=== PATIENT | female | born 1960 | race Caucasian/White ===

== ENCOUNTER → 2017-03-09 | Outpatient (CLI) | payer OTHER ==
[2017-03-09 13:49] LABS: ALT/SGPT 31 U/L (12-78); AST/SGOT 20 U/L (15-37); BLOOD UREA NITROGEN 13 mg/dl (7-18); BUN/CREATININE RATIO 21.6 (10-20); CALCIUM 8.4 mg/dl (8.5-10.1); CARBON DIOXIDE 27 mmol/L (21-32); CHLORIDE 109 mmol/L (98-107); CREATININE 0.61 mg/dl (0.60-1.20); GLUCOSE 116 mg/dl (70-99); POTASSIUM 3.9 mmol/L (3.5-5.1); SODIUM 141 mmol/L (136-145)
[2017-03-09 13:57] LABS: ALB/GLOB RATIO 0.7 (0.9-2); ALKALINE PHOSPHATASE 95 U/L (45-117); CHOLESTEROL 163 mg/dl (0-200); CHOLESTEROL/HDL RATIO 3.8; HDL CHOLESTEROL 43 mg/dl; LDL CHOLESTEROL CALCULATED 73 mg/dl; THYROID STIMULATING HORMONE 0.772 uIu/ml (0.300-4.500); TRIGLYCERIDES 235 mg/dl (0-150); VERY LOW DENSITY LIPOPROT CALC 47 mg/dl
[2017-03-09 14:03] LABS: ESTIMATED AVERAGE GLUCOSE 154 mg/dl; HA1C FLAG Normal (Normal)
[2017-03-14 19:33] LABS: GLUTAMIC ACID DECARBOXYLASE-65 <5 IU/mL (<5)
== END | disposition home or self-care (01) ==
LOC: C.LAB1850 12:00
PROVIDERS: ATTEND Internal Medicine Endocrinology, Diabetes & Metabolism
DX: E11.9 Type 2 diabetes mellitus without complications (principal)

== ENCOUNTER → 2017-05-26 | Day surgery (SDC) | payer OTHER ==
[2017-05-17 11:10] VITALS: Ht 160 cm; Wt 113.6 kg
[~2017-05-26] VITALS: Ht 160 cm; Wt 113.6 kg
[~2017-05-26] MED LIST: ATROPINE SULFATE 0.1 MG/ML 5ML SYR IV PRN; B-COTAB18 PO; CHOL1TAB46 PO; DVN80 PO; EpHEDrine SULFATE INJ 50 MG/ML AMP IV PRN; GLC/500 PO; GLIP-197 PO; INDSR/120 PO; LEVO100T7 PO; LIDOCAINE HCL 2% 2 ML VIAL (20MG/ML) ONE; MIDAZOLAM HCL 1 MG/ML 2ML VIAL ONE; MULT-506 PO; PANC6000 PO; PROPOFOL IV EMULSION 10 MG/ML 20 ML VIAL IV ONE; RMCI IV; TRAM-10 PO; TRAZ50TA35 PO; VENL150C56 PO
--- NOTE | 2017-05-26 10:25 | Endo History and Physical ---
History & Physical Date of Service: May 26, 2017. Chief Complaint: Ulerative Colitis Referring Physician: Dr. Roosevelt San History of Present Illness 57 yo CF who presents for colonoscopy secondary to ulcerative colitis. Past Surgical History Hx Cardiac Surgery: No Hx Internal Defibrillator: No Hx Pacemaker: No Hx Abdominal Surgery: Yes (ALLEGRA) Hx of Implantable Prosthesis: No Hx Post-Op Nausea and Vomiting: No Hx Cancer Surgery: No Hx Thoracic Surgery: No Hx Orthopedic: Yes (L5-S1 LUMBAR LASER SURGERY) Hx Urinary Tract Surgery: No Family History Colon CA, Esophogeal CA, Polyp, IBD Social History Smoking Status: Former Smoker Hx Substance Use: No Hx Alcohol Use: No Allergies Coded Allergies: NO KNOWN DRUG ALLERGIES (Verified Allergy, Unknown, ., 05/17/17) Current Medications Reported Home Medications Medications Dose Route/Sig Max Daily Dose Days Date Category Dose Instructions Vitamin B Complex (B-Complex Vitamins) 1 Tab Tab 1 Tab PO QPM 05/17/17 Reported Vitamin D3 (Cholecalciferol) 5,000 Unit Tab 1 Tab PO QPM 05/17/17 Reported Effexor Extended Rel (Venlafaxine Hcl) 150 Mg Cap 150 Mg PO QAM 05/17/17 Reported Diovan (Valsartan) 80 Mg Tab 80 Mg PO QAM 05/17/17 Reported Trazodone (Trazodone HCl) 50 Mg Tab 50 Mg PO HS 05/17/17 Reported Ultram (Tramadol HCl) 50 Mg Tab 1 Tab PO DAILY PRN 05/17/17 Reported Remicade (Infliximab) 100 Mg/10 Ml Inj 1 Dose IV Q8WKS 05/17/17 Reported Inderal La (Propranolol HCl) 120 Mg Capcr 120 Mg PO QPM 05/17/17 Reported Multivitamin (Multivitamins) Tab 1 Tab PO QAM 05/17/17 Reported Glucophage (Metformin Hcl) 500 Mg Tab 2 Tab PO BID 05/17/17 Reported Levothyroxine Sodium 100 Mcg Tab 1 Tab PO QAM 05/17/17 Reported Glipizide Er (Glipizide) 5 Mg Tab 1 Tab PO QPM 05/17/17 Reported Creon (Pancrelipase (Lipase-Protease-) 1 Cap Cap 2 Cap PO WITH MEALS 05/17/17 Reported IN ADDITION TO 1 TABS WITH SNACK Vital Signs Weight (Kilograms): 113.64 Height (Feet): 5 Height (Inches): 3 Date Time Temp Pulse Resp B/P (MAP) Pulse Ox O2 Delivery O2 Flow Rate FiO2 05/26/17 10:13 36.5 97 95 153/88 (109) 95 Room Air Physical Exam General Appearance: WD/WN, no apparent distress Respiratory/Chest: Auscultation: breath sounds normal Cardiovascular: Heart Auscultation: RRR Abdomen: Bowel Sounds: normal Inspection & Palpation: soft, non-distended, no tenderness, guarding & rebound Assessment and Plan Assessment: 57 yo CF who presents for colonoscopy secondary to ulcerative colitis. Plan: Proceed with colonoscopy.
--- NOTE | 2017-05-26 10:59 | Discharge Instructions ---
Endoscopy Patient Instructions Date / Procedure(s) Performed May 26, 2017. Colonoscopy Allergy Information Coded Allergies: NO KNOWN DRUG ALLERGIES (Verified Allergy, Unknown, ., 05/17/17) Discharge Date / Findings May 26, 2017. Colon polyps Ulcerative proctitis Random colon biopsies Diverticulosis Internal hemorrhoids Medication Instructions Stopped Medication(s): last Metformin Monday OK to resume all medications today as prescribed Reported Home Medications Medications Dose Route/Sig Max Daily Dose Days Date Category Dose Instructions Vitamin B Complex (B-Complex Vitamins) 1 Tab Tab 1 Tab PO QPM 05/17/17 Reported Vitamin D3 (Cholecalciferol) 5,000 Unit Tab 1 Tab PO QPM 05/17/17 Reported Effexor Extended Rel (Venlafaxine Hcl) 150 Mg Cap 150 Mg PO QAM 05/17/17 Reported Diovan (Valsartan) 80 Mg Tab 80 Mg PO QAM 05/17/17 Reported Trazodone (Trazodone HCl) 50 Mg Tab 50 Mg PO HS 05/17/17 Reported Ultram (Tramadol HCl) 50 Mg Tab 1 Tab PO DAILY PRN 05/17/17 Reported Remicade (Infliximab) 100 Mg/10 Ml Inj 1 Dose IV Q8WKS 05/17/17 Reported Inderal La (Propranolol HCl) 120 Mg Capcr 120 Mg PO QPM 05/17/17 Reported Multivitamin (Multivitamins) Tab 1 Tab PO QAM 05/17/17 Reported Glucophage (Metformin Hcl) 500 Mg Tab 2 Tab PO BID 05/17/17 Reported Levothyroxine Sodium 100 Mcg Tab 1 Tab PO QAM 05/17/17 Reported Glipizide Er (Glipizide) 5 Mg Tab 1 Tab PO QPM 05/17/17 Reported Creon (Pancrelipase (Lipase-Protease-) 1 Cap Cap 2 Cap PO WITH MEALS 05/17/17 Reported IN ADDITION TO 1 TABS WITH SNACK Provider Instructions Activity Restrictions - No exercising or heavy lifting for 24 hours. - Do not drink alcohol the day of the procedure. - Do not drive a car or operate machinery until the day after the procedure. - Do not make any important decisions or sign important papers in 24 hours after the procedure. Following Day: - Return to full activity which may include returning to work/school. Diet Start your diet with liquids and light foods (jello, soup, juice, toast). Then eat your usual diet if not nauseated. Treatment For Common After Affects For mild abdominal pain, bloating, or excessive gas: - Rest - Eat lightly - Lie on right side Follow-Up Information Follow-up with Dr. Roosevelt San as scheduled Anesthesia Information What You Should Know You have had a procedure that required some medicine to reduce anxiety and discomfort. This treatment is called moderate sedation. After receiving the treatment, you may be sleepy, but you will be able to breathe on your own. The effects of the treatment may last for several hours. Follow these instructions along with Activity/Diet recommendations noted above: * Do NOT do anything where dizziness or clumsiness would be dangerous. * Rest quietly at home today, then you can be up and about tomorrow. * Have a responsible person stay with you the rest of today. * You may have had an I.V. today. If so, you may take the dressing off later today. Recommendations Call your doctor if: * Trouble breathing * Continuous vomiting for more than 24 hours * Temperature above 101 degrees * Severe abdominal pain or bloating * Pain not relieved by pain medicine ordered * There is increased drainage or redness from any incision * A large amount of rectal bleeding greater than 2-3 tablespoons. (If you had a polyp/s removed or have hemorrhoids, a small amount of blood - from the rectum is to be expected.) * You have any unanswered questions or concerns. IN THE EVENT OF A SERIOUS EMERGENCY, GO TO THE NEAREST EMERGENCY ROOM Your discharge instructions were prepared by provider Jacky Tuttle. Patient Instructions Signature Page Emani Boyer Patient (or Guardian) Signature/Date: I have read and understand the instructions given to me by my caregivers. Caregiver/RN/Doctor Signature/Date: The above-named patient and/or guardian has received patient instructions on this date. + Original Patient Signature Page (only) stays with chart. Please make copy for patient.
--- NOTE | 2017-05-26 11:14 | Anesthesiology Progress Note ---
Anesthesia Post Op Note Date & Time May 26, 2017 at 11:14 Vital Signs Pain Intensity: 0 Vital Signs Past 12 Hours Date Time Temp Pulse Resp B/P (MAP) Pulse Ox O2 Delivery O2 Flow Rate FiO2 05/26/17 11:05 77 20 94/49 (64) 94 Room Air 05/26/17 10:13 36.5 97 95 153/88 (109) 95 Room Air Notes Mental Status: alert / awake / arousable, participated in evaluation Pt Amnestic to Procedure: Yes Nausea / Vomiting: adequately controlled Pain: adequately controlled Airway Patency, RR, SpO2: stable & adequate BP & HR: stable & adequate Hydration State: stable & adequate Anesthetic Complications: no major complications apparent
[2017-05-26 11:35] VITALS: BP 127/54; PULSE 83; O2SAT 96
--- NOTE | 2017-05-26 14:00 | GI REPORT ---
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 Estimated Blood Loss: Estimated blood loss: none. Procedure: Pre-Anesthesia Assessment: - Prior to the procedure, a History and Physical was performed, and patient medications and allergies were reviewed. The patient's tolerance of previous anesthesia was also reviewed. The risks and benefits of the procedure and the sedation options and risks were discussed with the patient. All questions were answered, and informed consent was obtained. Prior Anticoagulants: The patient has taken no previous anticoagulant or antiplatelet agents. ASA Grade Assessment: II - A patient with mild systemic disease. After reviewing the risks and benefits, the patient was deemed in satisfactory condition to undergo the procedure. After I obtained informed consent, the scope was passed under direct vision. Throughout the procedure, the patient's blood pressure, pulse, and oxygen saturations were monitored continuously. The scope was introduced through the anus and advanced to the cecum, identified by appendiceal orifice and ileocecal valve. The colonoscopy was performed without difficulty. The patient tolerated the procedure well. The quality of the bowel preparation was good. The ileocecal valve, appendiceal orifice, and rectum were photographed. Findings: Two sessile polyps were found in the transverse colon. The polyps were 4 to 6 mm in size. These polyps were removed with a hot snare. Resection and retrieval were complete. Multiple small-mouthed diverticula were found in the sigmoid colon. Inflammation characterized by erosions, erythema and friability was found in a continuous and circumferential pattern from the anus to the rectum. This was mild in severity. Non-bleeding internal hemorrhoids were found during retroflexion. The hemorrhoids were small. Several random biopsies were obtained with cold forceps for histology in the entire colon. Impression: - Two 4 to 6 mm polyps in the transverse colon, removed with a hot snare. Resected and retrieved. - Diverticulosis in the sigmoid colon. - Inflammation was found from the anus to the rectum secondary to proctitis ulcerative colitis. - Non-bleeding internal hemorrhoids. - Several random biopsies were obtained in the entire colon. Recommendation: - Resume previous diet. - Continue present medications. - Repeat colonoscopy for surveillance based on pathology results. - Return to primary care physician as previously scheduled. Jacky Tuttle DO 05/26/2017 11:08:06 AM This report has been signed electronically. Note Initiated On: 05/26/2017 10:33 AM I attest to the content of the Intraoperative Record and orders documented therein, exceptions below
== END | disposition home or self-care (01) ==
LOC: C.GI 09:53
PROVIDERS: ATTEND Internal Medicine
DX: K51.20 Ulcerative (chronic) proctitis without complications (principal); D12.3 Benign neoplasm of transverse colon; K57.30 Diverticulosis of large intestine without perforation or abscess without bleeding; K64.8 Other hemorrhoids; Z80.0 Family history of malignant neoplasm of digestive organs; Z83.71 Family history of colonic polyps; Z83.79 Family history of other diseases of the digestive system; Z87.891 Personal history of nicotine dependence; Z79.899 Other long term (current) drug therapy

== ENCOUNTER → 2017-06-12 | Outpatient (CLI) | payer OTHER ==
[~2017-06-12] MED LIST changes: -ATROPINE SULFATE 0.1 MG/ML 5ML SYR IV PRN; -EpHEDrine SULFATE INJ 50 MG/ML AMP IV PRN; -LIDOCAINE HCL 2% 2 ML VIAL (20MG/ML) ONE; -MIDAZOLAM HCL 1 MG/ML 2ML VIAL ONE; -PROPOFOL IV EMULSION 10 MG/ML 20 ML VIAL IV ONE
[2017-06-12 15:22] LABS: RATIO 9.2 mcg/mg (0-30.0)
[2017-06-13 07:21] LABS: ESTIMATED AVERAGE GLUCOSE 143 mg/dl; HA1C FLAG Normal (Normal)
== END | disposition home or self-care (01) ==
LOC: C.LAB1850 12:38
PROVIDERS: ATTEND Internal Medicine Endocrinology, Diabetes & Metabolism
DX: E11.9 Type 2 diabetes mellitus without complications (principal)

== ENCOUNTER → 2017-10-06 | Outpatient (CLI) | payer OTHER ==
[~2017-10-06] MED LIST changes: +ACET-1256 PO; +CALC-354 PO; +CEPH500C PO; +METH2.5T PO; +MULT-663 PO; +ONDA4TAB10 SL; +OXYC1TAB3 PO
[2017-10-06 11:07] LABS: BASO % 0.7 %; BASO ABS # 0.06 K/uL (0-0.2); EOS % 3.2 %; EOS ABS # 0.27 K/uL (0-0.5); HEMOGLOBIN 15.1 g/dL (12.0-16.0); IG# 0.03 K/uL (0.00-0.02); LYMPH % 35.7 %; LYMPH ABS # 2.99 K/uL (1.2-3.4); MEAN CORPUSCULAR HEMOGLOBIN 31.2 pg (25-34); MEAN CORPUSCULAR HGB CONC 32.8 g/dl (32-36); MEAN PLATELET VOLUME 9.6 fL (7.4-10.4); MONO % 12.7 %; MONO ABS # 1.06 K/uL (0.11-0.59); NEUT % 47.3 %; NEUT ABS # 3.96 K/uL (1.4-6.5); PLATELET COUNT 295 K/uL (130-400); RED CELL DISTRIBUTION WIDTH CV 18.2 % (11.5-14.5); RED CELL DISTRIBUTION WIDTH SD 62.9 fL (36.4-46.3); WHITE BLOOD COUNT 8.37 K/uL (4.8-10.8)
[2017-10-06 11:41] LABS: ALBUMIN 3.4 gm/dl (3.4-5.0); ALT/SGPT 57 U/L (12-78); AST/SGOT 32 U/L (15-37); BLOOD UREA NITROGEN 10 mg/dl (7-18); CALCIUM 8.6 mg/dl (8.5-10.1); CARBON DIOXIDE 26 mmol/L (21-32); CREATININE 0.69 mg/dl (0.60-1.20); GLUCOSE 224 mg/dl (70-99); POTASSIUM 3.9 mmol/L (3.5-5.1); SODIUM 139 mmol/L (136-145)
[2017-10-06 11:43] LABS: ALKALINE PHOSPHATASE 95 U/L (45-117); TOTAL PROTEIN 7.5 gm/dl (6.4-8.2)
== END | disposition home or self-care (01) ==
LOC: C.LAB 09:57
PROVIDERS: ATTEND Physician Assistant
DX: K51.90 Ulcerative colitis, unspecified, without complications (principal)

== ENCOUNTER 2017-10-12 08:55 | Emergency (ER) | payer OTHER ==
[~2017-10-12] VITALS: Ht 160 cm; Wt 118.5 kg
[~2017-10-12 08:55] MED LIST changes: -ACET-1256 PO; -CALC-354 PO; -CEPH500C PO; -METH2.5T PO; -MULT-663 PO; -ONDA4TAB10 SL; -OXYC1TAB3 PO
[2017-10-12 08:57] VITALS: TEMP 36.4; Ht 160 cm; Wt 118.5 kg
[2017-10-12] MEDS ORDERED: HYDROmorphone INJ 1 MG/ML SYR IV STA (09:06)
[2017-10-12] MEDS ORDERED: SODIUM CHLORIDE 0.9% 1000ML 1,000 ML IV STA (09:06)
[2017-10-12] MEDS ORDERED: KETOROLAC TROMETHAMINE 30 MG/ML VIAL IV STA (09:06)
[2017-10-12] MEDS ORDERED: METOCLOPRAMIDE HCL INJ 5 MG/ML 2 ML VIAL IV. STA (09:06)
[2017-10-12] MEDS ORDERED: OPTIRAY 320 IV PRN (09:15)
[2017-10-12 09:36] LABS: BASO % 0.2 %; BASO ABS # 0.03 K/uL (0-0.2); EOS % 0.7 %; EOS ABS # 0.11 K/uL (0-0.5); HEMATOCRIT 49.3 % (37-47); HEMOGLOBIN 16.3 g/dL (12.0-16.0); IG# 0.07 K/uL (0.00-0.02); LYMPH % 9.6 %; LYMPH ABS # 1.46 K/uL (1.2-3.4); MEAN CELL VOLUME 95.2 fL (80-100); MEAN CORPUSCULAR HEMOGLOBIN 31.5 pg (25-34); MEAN CORPUSCULAR HGB CONC 33.1 g/dl (32-36); MEAN PLATELET VOLUME 9.6 fL (7.4-10.4); MONO % 9.7 %; MONO ABS # 1.48 K/uL (0.11-0.59); NEUT % 79.3 %; NEUT ABS # 12.13 K/uL (1.4-6.5); PLATELET COUNT 302 K/uL (130-400); RED CELL DISTRIBUTION WIDTH CV 17.4 % (11.5-14.5); WHITE BLOOD COUNT 15.28 K/uL (4.8-10.8)
[2017-10-12 09:40] VITALS: O2SAT 94
--- NOTE | 2017-10-12 09:45 | DIAGNOSTIC IMAGING REPORT ---
CHEST ONE VIEW PORTABLE CLINICAL HISTORY: Atypical chest pain COMPARISON STUDY: No previous studies for comparison. FINDINGS: The cardiac and mediastinal contours are normal. There is no evidence of focal pulmonary consolidation. There is no evidence of failure. No pleural effusions are visualized.[ There is a mild spinal curvature. There is suspected calcific tendinitis involving the left shoulder. IMPRESSION: No active disease in the chest. Electronically signed by: Marc Tipton M.D. 10/12/2017 9:43 AM Dictated Date/Time: 10/12/2017 9:43 AM
[2017-10-12] MEDS ORDERED: CALC-354 PO (09:51)
[2017-10-12] MEDS ORDERED: ACET-1256 PO (09:51)
[2017-10-12] MEDS ORDERED: MULT-663 PO (09:53)
[2017-10-12 09:57] LABS: ALBUMIN 3.5 gm/dl (3.4-5.0); ALKALINE PHOSPHATASE 113 U/L (45-117); ALT/SGPT 64 U/L (12-78); AST/SGOT 38 U/L (15-37); BLOOD UREA NITROGEN 12 mg/dl (7-18); CALCIUM 8.8 mg/dl (8.5-10.1); CARBON DIOXIDE 21 mmol/L (21-32); GLUCOSE 129 mg/dl (70-99); LIPASE 309 U/L (73-393); POTASSIUM 4.1 mmol/L (3.5-5.1); SODIUM 140 mmol/L (136-145); TOTAL PROTEIN 7.6 gm/dl (6.4-8.2)
[2017-10-12 09:59] LABS: CKMB < 0.5 ng/ml (0.5-3.6)
[2017-10-12] MEDS ORDERED: METH2.5T PO (10:03)
[2017-10-12] MEDS ORDERED: ONDANSETRON INJ 2 MG/ML 2 ML VIAL IV STA (11:20)
--- NOTE | 2017-10-12 12:18 | DIAGNOSTIC IMAGING REPORT ---
CT ABD/PELVIS IV AND ORAL CONT CLINICAL HISTORY: Epigastric pain. Pancreatitis. COMPARISON STUDY: None. TECHNIQUE: Following the IV administration of 120 mL of Optiray-320, CT scan of the abdomen and pelvis was performed from the lung bases to the proximal femurs. Images are reviewed in the axial, sagittal, and coronal planes. IV contrast was administered without complication. A dose lowering technique was utilized adhering to the principles of ALARA. CT DOSE: 1677.69 mGy.cm FINDINGS: Lower chest: The heart is normal in size and configuration, without pericardial effusion. The lung bases and pleural spaces are clear. Liver: There is mild hepatic steatosis. No focal masses are visualized. Gallbladder: Surgically absent Spleen: Normal in size and attenuation. Pancreas: Unremarkable. Adrenal glands: There is bilateral adrenal gland thickening left greater than right, likely secondary to adenomatous hyperplasia Kidneys: There is a 7 mm left renal cyst. There is no hydronephrosis. Bowel: There are no transition zones indicate bowel obstruction. There is colonic diverticulosis. There are no acute peridiverticular inflammatory changes. The appendix is felt to be normal. Peritoneum: There is no intraperitoneal free air or abdominal ascites. There is a fat-containing umbilical hernia Vasculature: The abdominal aorta is normal in course and caliber. Adenopathy: There is a borderline enlarged aortocaval lymph node. Pelvic viscera: The bladder, and pelvic viscera are unremarkable. Skeletal structures: No destructive osseous lesions are seen. IMPRESSION: 1. No evidence of bowel obstruction. No evidence of free air 2. Diverticulosis. No evidence of acute diverticulitis 3. Normal appendix 4. No CT evidence of acute pancreatitis 5. Nonspecific borderline enlarged aortocaval lymph nodes possibly reactive 6. Fat-containing umbilical hernia Electronically signed by: Marc Tipton M.D. 10/12/2017 12:17 PM Dictated Date/Time: 10/12/2017 12:12 PM
[2017-10-12] MEDS ORDERED: CEFTRIAXONE SOD INJ 1 GM ADDVIAL IV STA (12:33)
[2017-10-12] MEDS ORDERED: CEPH500C PO (12:44)
[2017-10-12] MEDS ORDERED: ONDA4TAB10 SL (12:44)
[2017-10-12] MEDS ORDERED: OXYC1TAB3 PO (12:44)
[2017-10-12 12:51] VITALS: BP 113/66; PULSE 86; O2SAT 95
--- NOTE | 2017-10-12 12:51 | EMERGENCY ROOM VISIT NOTE ---
History Report prepared by Kiersten: Abhi Ruiz Under the Supervision of: Dr. Zana Yap M.D. First contact with patient: 09:01 Chief Complaint: ABDOMINAL PAIN Stated Complaint: PANCREATITIS Nursing Triage Summary: triage note: pt reports "i think i am having a pancreatitis attack." pt reports abd pain since this am. pt reports nausea. pt reports hx of pancreatitis. History of Present Illness The patient is a 57 year old female who presents to the Emergency Room with complaints of constant upper abdominal pain beginning four hours ago. She has a history of chronic pancreatitis and pancreatic insufficiency (but has not had pain with pancreatitis previously). The patient rates her pain as a 5/10 in severity. She also complains of nausea. The patient denies recent alcohol consumption. Her most recent food was eight hours ago. The patient also has a history of ulcerative colitis. Source of History: patient Onset: 4 hours ago Position: abdomen (upper) Symptom Intensity: 5/10 Timing: constant Associated Symptoms: + nausea Review of Systems See HPI for pertinent positives & negatives. A total of 10 systems reviewed and were otherwise negative. Past Medical & Surgical Medical Problems: (1) Diabetes (2) HTN (hypertension) (3) Pancreatitis (4) Ulcerative colitis Family History No pertinent family history stated. Social History Smoking Status: Never Smoker Marital Status: Housing Status: lives with significant other Current/Historical Medications Scheduled Acetaminophen (Tylenol), 1,000 MG PO UD Calcium Carbonate-Cholecalcife (Caltrate 600+D), 1 TAB PO HS Cephalexin Monohydrate (Keflex), 1 CAP PO TID Glipizide (Glipizide Er), 1 TAB PO QPM Infliximab (Remicade), 1 DOSE IV Q6WKS Levothyroxine Sodium (Levothyroxine Sodium), 1 TAB PO QAM Metformin Hcl (Glucophage), 2 TAB PO BID Methotrexate (Methotrexate), 15 MG PO WK Multiple Minerals W/ Vitamins (Citracal Plus), 2 TABS PO HS Multivitamin (Multivitamin), 1 TAB PO QAM Ondasetron Odt (Zofran Odt), 4 MG SL Q6H Pancrelipase (Lipase-Protease- (Creon), 2 CAP PO WITH MEALS Propranolol La (Inderal La), 120 MG PO QPM Valsartan (Diovan), 80 MG PO QAM Venlafaxine Hcl (Effexor Extended Rel), 150 MG PO QAM Scheduled PRN Oxycodone Immediate Rel Tab (Roxicodone Ir), 1-2 TAB PO Q4H PRN for Severe Pain Allergies Coded Allergies: NO KNOWN DRUG ALLERGIES (Verified Allergy, Unknown, ., 10/12/17) Physical Exam Vital Signs Date Time Temp Pulse Resp B/P (MAP) Pulse Ox O2 Delivery O2 Flow Rate FiO2 10/12/17 12:51 86 20 113/66 95 Room Air 10/12/17 11:57 89 20 126/72 93 Room Air 10/12/17 10:09 79 20 116/65 94 Nasal Cannula 2.0 10/12/17 09:53 81 10/12/17 09:40 94 Nasal Cannula 2.0 10/12/17 09:37 93 Room Air 10/12/17 08:57 36.4 83 18 153/116 92 Room Air Physical Exam GENERAL: Awake, alert, well-appearing, in no acute distress HENT: Normocephalic, atraumatic. Oropharynx unremarkable. EYES: Normal conjunctiva. Sclera non-icteric. NECK: Supple. No nuchal rigidity. FROM. No JVD. RESPIRATORY: Clear to auscultation. CARDIAC: Regular rate, normal rhythm. Extremities warm and well perfused. Pulses equal. ABDOMEN: Soft, non-distended. No rebound or guarding. No masses. Mildly tender in the epigastric region. RECTAL: Deferred. MUSCULOSKELETAL: Chest examination reveals no tenderness. The back is symmetrical on inspection without obvious abnormality. There is no CVA tenderness to palpation. No joint edema. LOWER EXTREMITIES: Calves are equal size bilaterally and non-tender. No edema. No discoloration. NEURO: Normal sensorium. No sensory or motor deficits noted. SKIN: No rash or jaundice noted. Medical Decision & Procedures ER Provider Diagnostic Interpretation: Radiology results as stated below per my review and radiologist interpretation: CHEST ONE VIEW PORTABLE FINDINGS: The cardiac and mediastinal contours are normal. There is no evidence of focal pulmonary consolidation. There is no evidence of failure. No pleural effusions are visualized.[ There is a mild spinal curvature. There is suspected calcific tendinitis involving the left shoulder. IMPRESSION: No active disease in the chest. Electronically signed by: Marc Tipton M.D. 10/12/2017 9:[address] ABD/PELVIS IV AND ORAL CONT FINDINGS: Lower chest: The heart is normal in size and configuration, without pericardial effusion. The lung bases and pleural spaces are clear. Liver: There is mild hepatic steatosis. No focal masses are visualized. Gallbladder: Surgically absent Spleen: Normal in size and attenuation. Pancreas: Unremarkable. Adrenal glands: There is bilateral adrenal gland thickening left greater than right, likely secondary to adenomatous hyperplasia Kidneys: There is a 7 mm left renal cyst. There is no hydronephrosis. Bowel: There are no transition zones indicate bowel obstruction. There is colonic diverticulosis. There are no acute peridiverticular inflammatory changes. The appendix is felt to be normal. Peritoneum: There is no intraperitoneal free air or abdominal ascites. There is a fat-containing umbilical hernia Vasculature: The abdominal aorta is normal in course and caliber. Adenopathy: There is a borderline enlarged aortocaval lymph node. Pelvic viscera: The bladder, and pelvic viscera are unremarkable. Skeletal structures: No destructive osseous lesions are seen. IMPRESSION: 1. No evidence of bowel obstruction. No evidence of free air 2. Diverticulosis. No evidence of acute diverticulitis 3. Normal appendix 4. No CT evidence of acute pancreatitis 5. Nonspecific borderline enlarged aortocaval lymph nodes possibly reactive 6. Fat-containing umbilical hernia Electronically signed by: Marc Tipton M.D. 10/12/2017 12:17 PM Laboratory Results 10/12/17 09:22 Red Blood Count 5.18, Mean Corpuscular Volume 95.2, Mean Corpuscular Hemoglobin 31.5, Mean Corpuscular Hemoglobin Concent 33.1, Mean Platelet Volume 9.6, Neutrophils (%) (Auto) 79.3, Lymphocytes (%) (Auto) 9.6, Monocytes (%) (Auto) 9.7, Eosinophils (%) (Auto) 0.7, Basophils (%) (Auto) 0.2, Neutrophils # (Auto) 12.13, Lymphocytes # (Auto) 1.46, Monocytes # (Auto) 1.48, Eosinophils # (Auto) 0.11, Basophils # (Auto) 0.03 10/12/17 09:22 Test 10/12/17 09:22 10/12/17 12:00 White Blood Count 15.28 K/uL (4.8-10.8) Red Blood Count 5.18 M/uL (4.2-5.4) Hemoglobin 16.3 g/dL (12.0-16.0) Hematocrit 49.3 % (37-47) Mean Corpuscular Volume 95.2 fL (80-100) Mean Corpuscular Hemoglobin 31.5 pg (25-34) Mean Corpuscular Hemoglobin Concent 33.1 g/dl (32-36) Platelet Count 302 K/uL (130-400) Mean Platelet Volume 9.6 fL (7.4-10.4) Neutrophils (%) (Auto) 79.3 % Lymphocytes (%) (Auto) 9.6 % Monocytes (%) (Auto) 9.7 % Eosinophils (%) (Auto) 0.7 % Basophils (%) (Auto) 0.2 % Neutrophils # (Auto) 12.13 K/uL (1.4-6.5) Lymphocytes # (Auto) 1.46 K/uL (1.2-3.4) Monocytes # (Auto) 1.48 K/uL (0.11-0.59) Eosinophils # (Auto) 0.11 K/uL (0-0.5) Basophils # (Auto) 0.03 K/uL (0-0.2) RDW Standard Deviation 61.0 fL (36.4-46.3) RDW Coefficient of Variation 17.4 % (11.5-14.5) Immature Granulocyte % (Auto) 0.5 % Immature Granulocyte # (Auto) 0.07 K/uL (0.00-0.02) Anion Gap 11.0 mmol/L (3-11) Est Creatinine Clear Calc Drug Dose 107.7 ml/min Estimated GFR () 109.9 Estimated GFR (Non- 94.8 BUN/Creatinine Ratio 17.1 (10-20) Calcium Level 8.8 mg/dl (8.5-10.1) Total Bilirubin 0.3 mg/dl (0.2-1) Direct Bilirubin < 0.1 mg/dl (0-0.2) Aspartate Amino Transf (AST/SGOT) 38 U/L (15-37) Alanine Aminotransferase (ALT/SGPT) 64 U/L (12-78) Alkaline Phosphatase 113 U/L (45-117) Total Creatine Kinase 53 U/L (26-192) Creatine Kinase MB < 0.5 ng/ml (0.5-3.6) Creatine Kinase MB Ratio (0-3.0) Troponin I < 0.015 ng/ml (0-0.045) Total Protein 7.6 gm/dl (6.4-8.2) Albumin 3.5 gm/dl (3.4-5.0) Amylase Level 67 U/L (25-115) Lipase 309 U/L (73-393) Urine Color DK YELLOW Urine Appearance CLEAR (CLEAR) Urine pH 5.0 (4.5-7.5) Urine Specific [place] > 1.045 (1.000-1.030) Urine Protein 1+ (NEG) Urine Glucose (UA) NEG (NEG) Urine Ketones NEG (NEG) Urine Occult Blood NEG (NEG) Urine Nitrite NEG (NEG) Urine Bilirubin NEG (NEG) Urine Urobilinogen NEG (NEG) Urine Leukocyte Esterase SMALL (NEG) Urine WBC (Auto) 10-30 /hpf (0-5) Urine RBC (Auto) 0-4 /hpf (0-4) Urine Hyaline Casts (Auto) 5-10 /lpf (0-5) Urine Epithelial Cells (Auto) 20-30 /lpf (0-5) Urine Bacteria (Auto) 1+ (NEG) Labs reviewed by ED physician. Medications Administered Medications (Trade) Dose Ordered Sig/Glenda Route Start Time Stop Time Status Last Admin Dose Admin Ketorolac Tromethamine (Toradol Inj) 30 mg NOW STAT IV 10/12/17 09:06 10/12/17 09:08 DC 10/12/17 09:31 30 MG Hydromorphone HCl (Dilaudid Inj) 1 mg NOW STAT IV 10/12/17 09:06 10/12/17 09:08 DC 10/12/17 09:31 1 MG Metoclopramide HCl (Reglan Inj) 10 mg NOW STAT IV. 10/12/17 09:06 10/12/17 09:08 DC 10/12/17 09:30 10 MG Sodium Chloride 1,000 ml @ 999 mls/hr Q1H1M STAT IV 10/12/17 09:06 10/12/17 10:06 DC 10/12/17 09:30 999 MLS/HR Ondansetron HCl (Zofran Inj) 4 mg NOW STAT IV 10/12/17 11:20 10/12/17 11:21 DC 10/12/17 11:29 4 MG Ceftriaxone Sodium (Rocephin Inj) 1 gm NOW STAT IV 10/12/17 12:33 10/12/17 12:34 DC 10/12/17 12:47 1 GM ECG Per My Interpretation Indication: abdominal pain Rate (beats per minute): 79 Rhythm: normal sinus Findings: other (No ST elevation or depression. Normal axis. ) ED Course 0902: Past medical records reviewed. The patient was evaluated in room B10. A complete history and physical examination was performed. 0906: Ordered Sodium Chloride 1000 ml @ 999 mls/hr, Reglan Inj 10 mg IV, Dilaudid Inj 1 mg IV, Toradol Inj 30 mg IV. 1118: The patient is requesting more nausea medication. 1120: Ordered Zofran Inj 4 mg IV. 1233: Ordered Rocephin Inj 1 gm IV. 1245: Upon reexamination the patient is resting comfortably. I discussed results and treatment plan with the patient. She verbalizes agreement and understanding. The patient is ready for discharge. Medical Decision Differential diagnosis: Etiologies such as appendicitis, diverticulitis, PUD, biliary pathology, UTI, pancreatitis, obstruction, mesenteric ischemia, aortic pathology, infections, inflammatory bowel disease, renal colic, as well as others were entertained. This is a 57-year-old female who presents emergency department complaining of epigastric pain. The patient reports she has a history of pancreatitis and when her pancreas levels are elevated she has a gross elevation in her lipase. I will note that the patient's lipase here is normal. Serial abdominal examinations were performed on the patient in the emergency department and at no time did the patient exhibited a surgical abdomen. An IV was established, the patient was given normal saline bolus, Toradol, Dilaudid. Repeat examination revealed improvement in the patient's symptoms. Patient's CAT scan of her abdomen and pelvis does not show any evidence of acute pancreatitis. There is also no evidence of obstruction and I feel that the patient can be safely discharged home. She does have what appears to be a urinary tract infection. For this reason the patient was started on IV Rocephin and will be given Keflex for home. She was also given pain medication for home I encouraged a clear liquid diet for the next 48 hours. The patient refused stool softeners. [place] Drug Monitoring Program Search Results: patient reviewed within database, no issues identified, see additional documentation Drug Monitoring Findings: 50 Tramadol filled in April 2017. Medication Reconcilliation Current Medication List: was personally reviewed by me Blood Pressure Screening Patient's blood pressure: Normal blood pressure Blood pressure disposition: Did not require urgent referral Impression Primary Impression: Abdominal pain Additional Impression: UTI (urinary tract infection) Scribe Attestation The scribe's documentation has been prepared under my direction and personally reviewed by me in its entirety. I confirm that the note above accurately reflects all work, treatment, procedures, and medical decision making performed by me. Departure Information Dispostion Home / Self-Care Prescriptions Oxycodone Immediate Rel Tab (ROXICODONE IR) 5 Mg Tab 1-2 TAB PO Q4H Y for Severe Pain, #14 TAB Prov: Zana Yap MD 10/12/17 Ondasetron Odt (ZOFRAN ODT) 4 Mg Tab 4 MG SL Q6H for Nausea, #6 TAB Prov: Zana Yap MD 10/12/17 Cephalexin Monohydrate (Keflex) 500 Mg Cap 1 CAP PO TID for 10 Days, #30 CAP Prov: Zana Yap MD 10/12/17 Referrals Roosevelt San M.D. (PCP) Forms Call Back Authorization, HOME CARE DOCUMENTATION FORM, IMPORTANT VISIT INFORMATION Patient Instructions Diet Clear Liquid Dc, ED Epigastric Pain [facility], [facility], Pancreatitis Acute Dc, Pancreatitis Chronic Dc Additional Instructions Clear liquid diet next 48 hours Take 1000 mg Tylenol every 6 hours Take Oxy IR for breakthrough pain You received narcotic or benzodiazepene medication while in the emergency room today. This is an addictive medication that may cause drowziness as well as constipation. Do not drive, operate heavy machinery, or drink alcohol under the influence of this medication. Culture results are usually available in approx 48 hours You have been examined and treated today on an emergency basis only. This is not a substitute for, or an effort to provide, complete comprehensive medical care. It is impossible to recognize and treat all injuries or illnesses in a single emergency department visit. It is therefore important that you follow up closely with Dr San. Call as soon as possible for an appointment. Thank you for your time and consideration. I look forward to speaking with you again soon. Please don't hesitate to call us if you have any questions. Problem Qualifiers Primary Impression: Abdominal pain Abdominal location: epigastric Qualified Codes: R10.13 - Epigastric pain Additional Impression: UTI (urinary tract infection) Urinary tract infection type: acute cystitis Hematuria presence: without hematuria Qualified Codes: N30.00 - Acute cystitis without hematuria
== END 2017-10-12 13:25 | disposition home or self-care (01) ==
LOC: C.EDB 08:56
DX: R10.13 Epigastric pain (principal); N30.00 Acute cystitis without hematuria; K51.90 Ulcerative colitis, unspecified, without complications; I10 Essential (primary) hypertension; E11.9 Type 2 diabetes mellitus without complications; Z79.84 Long term (current) use of oral hypoglycemic drugs; Z79.899 Other long term (current) drug therapy

== ENCOUNTER → 2017-10-17 | Outpatient (CLI) | payer OTHER ==
[~2017-10-17] MED LIST changes: +ACET-1256 PO; -B-COTAB18 PO; +CALC-354 PO; +CEPH500C PO; -CHOL1TAB46 PO; +METH2.5T PO; +MULT-663 PO; +ONDA4TAB10 SL; +OXYC1TAB3 PO; -TRAM-10 PO; -TRAZ50TA35 PO
== END | disposition home or self-care (01) ==
LOC: C.MAMM 14:56
PROVIDERS: ATTEND Physician Assistant
DX: K51.90 Ulcerative colitis, unspecified, without complications (principal)

== ENCOUNTER → 2017-10-17 | Outpatient (CLI) | payer OTHER ==
--- NOTE | 2017-10-17 14:53 | DIAGNOSTIC IMAGING REPORT ---
TWO VIEW CHEST CLINICAL HISTORY: Cough and fever. FINDINGS: PA and lateral chest radiographs are compared to study dated 10/12/2017. The heart is top normal for projection and there is atherosclerotic calcification of the thoracic and. The pulmonary vasculature is noncongested. Chronic interstitial thickening is similar to previous. Bibasilar atelectasis is observed. No airspace consolidation or pleural effusion is identified. There is no pneumothorax. The skeletal structures are osteopenic. Degenerative change and scoliosis are noted in the thoracic spine. Cholecystectomy clips are observed. IMPRESSION: No active disease in the chest. Electronically signed by: David Skinner M.D. 10/17/2017 2:51 PM Dictated Date/Time: 10/17/2017 2:50 PM
== END | disposition home or self-care (01) ==
LOC: C.RAD1850 14:35
PROVIDERS: ATTEND Internal Medicine
DX: R50.9 Fever, unspecified (principal); R05 Cough

== ENCOUNTER 2024-08-29 06:02 | Inpatient (IN) ==
--- NOTE | 2024-08-21 08:32 | Anesthesiology Consultation ---
Date of Service August 21, 2024 Assessment & Plan (1) Encounter for pre-operative examination: Chart Review Chart Review: Acceptable Risk for Surgery (pending surgeon ordered PCP clearance, DOS CBC with diff, and DOS EKG if not re-ordered prior to surgery ) and Patient NOT seen in Pre Admission Testing - Awaiting surgeon ordered PCP clearance ([place] PCP- awaiting response to surgeon to PCP workload message 08/21/24) - Check CBC with diff (not done preoperatively) - Recheck EKG DOS (if not repeated by PCP) - Check BSG AM DOS -Infectious Disease screening: Per PAT nursing assessment on 08/20/24. No known infectious disease contacts in past 10 days or current infectious disease symptoms. No recent travel outside the country. Per endocrine workload note 08/07/24 in regards to proceeding with surgery= "... She does not need anything else from the endocrinology perspective. Please do discharge her on hydrocortisone 20/10 mg. Will reach out to her to schedule follow-up 2 weeks after surgery. Will ask our diabetes team to make sure that her glucose control is optimized. If you are looking for more information than this then please address primary care." History Surgery Operation Date: 08/29/24 07:30 Proposed Procedures p Robotic Assisted Laparoscopic Adrenalectomy - Left - Tony Parsons, DO Height/Weight Height: 5 ft 2 in Weight: 111.584 kg Allergies Allergy/AdvReac Type Severity Reaction Status Date / Time ropinirole Allergy Intermediate "violently Verified 08/20/24 15:03 ill" rosuvastatin AdvReac Mild "crying Verified 08/20/24 15:03 fits" Medications Home Medications Medication Instructions Recorded Confirmed Last Taken tehvtufd-grx-kauws acid 0.4 1 tab PO QAM 06/08/18 08/20/24 10/25/22 mg-lycopene 300 mcg-lutein 250 mcg tablet (Centrum Silver) cholecalciferol (vitamin D3) 25 1,000 unit PO HS 05/08/19 08/20/24 10/25/22 mcg (1,000 unit) capsule (Vitamin D3) albuterol sulfate 90 mcg/actuation 1 - 2 puff inhalation Q4H PRN 07/16/21 08/20/24 09/16/21 aerosol inhaler (Ventolin HFA) Shortness Of Breath #18 grams vedolizumab 300 mg intravenous 300 mg IV .COMPLEX #1 ea 07/27/23 02/11/25 Unknown solution (Entyvio) hyoscyamine sulfate 0.125 mg tablet 0.125 mg PO QID PRN ud 04/26/23 08/20/24 Unknown blood-glucose sensor (Dexcom G7 #9 ea 05/02/23 07/31/24 Unknown Sensor device) esomeprazole magnesium 40 mg 40 mg PO QAM #90 caps 09/14/23 08/20/24 Unknown capsule,delayed release bupropion HCl 150 mg tablet,12 hr 150 mg PO QAM #90 ea 09/18/23 08/20/24 Unknown sustained-release venlafaxine 150 mg 150 mg PO QAM #90 caps 09/18/23 08/20/24 Unknown capsule,extended release 24 hr folic acid 1 mg tablet 1 mg PO QAM #90 tabs 10/25/23 08/20/24 Unknown coenzyme Q10 100 mg capsule 400 mg PO BID 12/07/23 08/20/24 Unknown magnesium 200 mg tablet 200 mg PO HS 12/07/23 08/20/24 Unknown akhynl-dhdozhtt-cvnxvcp 2 cap PO AC #540 caps 02/26/24 08/20/24 Unknown 36,000-114,000-180,000 unit capsule,delay rel (Creon) cyanocobalamin (vitamin B-12) 500 1,000 mcg PO DAILY 03/14/24 08/20/24 Unknown mcg tablet (B-12 DOTS) pen needle, diabetic 32 gauge x #400 ea 03/14/24 07/31/24 Unknown 1/4" (TechLITE Pen Needle) insulin glargine 100 unit/mL (3 60 unit (0.6 mL) subcut HS #30 mL 05/10/24 08/20/24 Unknown mL) subcutaneous pen (Lantus Solostar U-100 Insulin) levothyroxine 75 mcg tablet 75 mcg PO QAM #90 tabs 05/15/24 08/20/24 Unknown Humalog KwikPen Insulin 100 15 unit (0.15 mL) subcut TID #15 mL 06/12/24 08/20/24 Unknown unit/mL subcutaneous (insulin lispro) metformin 500 mg tablet,extended 1,000 mg (2 x 500 mg) PO BID 90 01/13/25 02/11/25 Unknown release 24 hr days #360 tabs Lactobacillus rhamnosus-Bifidobac. 1 cap PO QAM 08/20/24 08/20/24 Unknown animalis 3 billion cell capsule ([employer]) olmesartan 40 mg tablet 40 mg PO QAM 08/20/24 08/20/24 Unknown pravastatin 10 mg tablet 10 mg PO QAM 08/20/24 08/20/24 Unknown Past Medical History Medical History (Updated 08/21/24 @ 11:48 by Stormy Oviedo PA-C) AC (acromioclavicular) arthritis Acne rosacea Adrenal hyperplasia More so noted to right adrenal gland per endocrine Adrenal mass "more clear nodular disease" to left adrenal gland per endocrine Anxiety and depression [place] disease - [place] [facility] - Endocrine recommended left adrenalectomy due to endogenous cortisol hypersecretion from 1 or both adrenal glands Decreased hearing Degenerative disc disease Diverticulosis Dyslipidemia Fatty infiltration of liver GERD (gastroesophageal reflux disease) Hepatitis A hx - as a child (no current issues) Hiatal hernia Hirsutism Hx of migraines Hx of ulcerative colitis remission since 2018 Hypertension Hypothyroidism Insomnia Memory loss mild - alert and oriented x3. On home oxygen therapy 1L of oxygen at HS via CPAP Osteoarthritis Pancreatic insufficiency secondary to idiopathic chronic pancreatitis uses creon daily Restless leg syndrome Scoliosis Severe obstructive sleep apnea to use CPAP with 1 L of oxygen - unable to use. is not using cpap or any oxygen currently Type 2 diabetes mellitus IDDM Past Family History Family History Grandmother (Maternal) Family history of diabetes mellitus Colon cancer Mother Family hx of colon cancer Colon cancer Aunt Family hx of colon cancer Colon cancer Diabetes Grandfather (Maternal) Colon cancer Father Cancer Uncle No problems noted. Other No family history of adverse response to anesthesia Denies family history of Ovarian cancer Prostate cancer Myocardial infarction Breast cancer Past Surgical History Surgical History H/O vaginal surgery vulva cyst removed History of anesthesia reaction hypotension History of back surgery "LASER SURGERY TO CLEAN OUT ARTHRITIS IN LUMBAR AREA" History of cholecystectomy 2007 [place] History of colonoscopy (10/2018) Every two years per pt. Last 02-17-Dr. Case History of endoscopic sinus surgery History of esophagogastroduodenoscopy (EGD) (11/2021) History of excision of pilonidal cyst History of myringotomy left ear History of repair of left rotator cuff History of tooth extraction all teeth removed S/P left cataract extraction S/P right cataract extraction Social History Smoking Status: Former smoker tobacco type: cigarettes Do You Dip or Chew Tobacco: No Smoking End Date: quit 2006 Hx Alcohol Use: No Hx Substance Use: Yes (medical THC card - does not currently use) substance use type: marijuana Last Used Substance Other:: "years ago" Testing Laboratory Results 08/07/24= URINE CULTURE: More than three types of organisms present, all moderate counts mixed probable skin scott 08/01/24= SODIUM: 141 POTASSIUM: 4.2 CHLORIDE: 105 CO2: 26 BUN: 14 CREATININE: 0.77 GLUCOSE: 191 Electrocardiogram Date: 08/19/24 Findings: + NSR @ (93bpm) Possible lateral infarct, age undetermined (Discussed with Dr. Siddiqui- possible lead placement- patient will be getting surgeon ordered PCP clearance prior to surgery, if EKG not re-checked- can order repeat EKG for DOS) Chest X-Ray Date: 08/19/24 Findings: + NAD Scoliosis is noted
[2024-08-29] MEDS: LR 15ML/HR IV SCH (06:53)
[2024-08-29] MEDS ORDERED: REMIFENTANIL HCL 1 MG VIAL IV ONE (06:58)
[2024-08-29] MEDS ORDERED: PROPOFOL IV EMULSION 10 MG/ML 100 ML VIAL IV ONE (06:58)
--- NOTE | 2024-08-29 06:58 | History & Physical Bridge Note ---
Date of Service August 29, 2024 History & Physical Bridge Note I have examined the patient, reviewed the History & Physical and in the interval since the performance of the History & Physical I have noted the following changes of clinical significance: no changes noted
[2024-08-29] MEDS ORDERED: fentaNYL citrate PF 100 MCG/2 ML VIAL ONE (07:20)
[2024-08-29] MEDS ORDERED: PROPOFOL IV EMULSION 10 MG/ML 20 ML VIAL IV ONE (07:20)
[2024-08-29] MEDS ORDERED: MIDAZOLAM HCL 1 MG/ML 2ML VIAL ONE (07:20)
[2024-08-29] MEDS ORDERED: ONDANSETRON INJ 2 MG/ML 2 ML VIAL ONE (07:20)
[2024-08-29] MEDS ORDERED: DEXAMETHASONE SOD INJ 4 MG/ML VIAL ONE (07:20)
[2024-08-29] MEDS ORDERED: ROCURONIUM BROMIDE 10 MG/ML 5 ML VIAL IV ONE ×2 (07:33→09:41)
[2024-08-29] MEDS: ceFAZolin 2000MG 2,000 MG/15 ML SYR IV SCH ×2 (07:54→13:48)
[2024-08-29] MEDS ORDERED: PHENYLEPHRINE HCL 10 MG/ML VIAL ONE (07:56)
--- NOTE | 2024-08-29 08:16 | Operative Report ---
PG Post Operative Report Pre & Post Diagnosis Hypercortisolism, Adrenal Mass Left Adrenal Same, Groin Abscess x 2 Operation Date: 08/29/24 07:30 <No data on this case meets the specified criteria> I identified the patient and participated in the time-out.: Yes Procedure Incision and Drainage of Right Groin Abscess Incision and Drainage of Left Labial/Groin abscess. Operation Date: 08/29/24 07:30 <No data on this case meets the specified criteria> Surgeon Tony Parsons, II, DO Counter Supervisor None Estimated Blood Loss 5 Findings Consistent with Post-Op Diagnosis Patient incidentally found to have 2 purulent draining abscess in the groin region. One Lesion in the right groin region/inner thigh. One Lesion on the left groin region/labial region. Specimens Wound culture left groin Wound culture right groin Drains Iodoform packing. Anesthesia Type General Complications none Disposition Disposition: Recovery Room Indications Patient with hypercortisolism and adrenal nodule. Plan to move forward with adrenalectomy on left however during prep and positioning patient found to have 2 purulent draining abscesses in the groin region. Due to need for steroid management and issues with skin infections elected to undergo urgent drainage of bilateral abscess. Risks and benefits discussed at length. Description of Procedure Patient was consented for left adrenalectomy and any necessary procedures and was brought back to the operating room for adrenalectomy. Patient was placed under anesthesia in the supine position. Patient was discovered to have groin abscess x 2 with signs of fluctuance and purulence and erythema. Due to findings of groin abscess it was deemed medically necessary to proceed with incision and drainage in order to be able to move forward with adrenalectomy. Patient was prepped and draped in the regular sterile fashion. A time out was completed to complete drainage of abscess prior to adrenalectomy. With the time out completed and the patient prepped, and washed off. Starting on the left the groin/labial abscess was assessed. There was a draining channel that was identified. An 11 blade scalpel was used to incise and open the abscess. A moderate amount of serosanguineous fluid was appreciated to be draining. The wound was further opened and utilizing a hemostat the abscess cavity was further opened. A deep wound culture was taken with a swab. This was sent for microanalysis. On probing with a finger some loculations were able to be disrupted. The channel was fully open. Adequate drainage had been achieved. The final wound dimensions were approximately 1.6 cm x 0.8 cm x 1.9 cm. The area was washed out iodoform packing was placed into the wound. Attention was then taken to the right side. The area was reprepped. A purulent drainage was appreciated draining from a small opening in the abscess. An 11 blade scalpel was then used to incise and open the abscess. Once again a wound culture was taken using a probe and sent for microanalysis. Purulent fluid was appreciated to be draining from this abscess. It was further probed and opened. On probing with a finger, the cavity was able to be further opened and loculations disrupted. Additional fluid was appreciated to be draining. The wound was then copiously washed out. Iodoform packing was placed into the wound. Final wound dimensions on the right was approximately 1.9 cm x 0.6 cm x 2.2 cm The areas were then further cleaned. Bandages were placed over the wounds. The patient was cleaned and maintained under anesthesia for positioning for the adrenalectomy. Patient remained under anesthesia. The procedure ended and with the patient and stable condition under general endotracheal tube intubation anesthesia with plans to move forward with left adrenalectomy. Please see other dictation for full report on adrenalectomy. I was present and participated in all aspects of the above urgent procedure. After procedure patient's was informed of the findings and the need for drainage. I attest to the content of the Intraoperative Record and any orders documented therein. Any exceptions are noted below.
[2024-08-29] MEDS: FLOSEAL HEMOSTATIC MATRIX 10ML TOP ONE (10:11)
[2024-08-29] MEDS: BUPIVACAINE 0.5 % 5 MG/1 ML MPF 30ML VIAL ONE (10:13)
[2024-08-29] MEDS ORDERED: HYDROmorphone INJ 2 MG/ML SYR/VIAL ONE (10:15)
--- NOTE | 2024-08-29 10:38 | Operative Report ---
PG Post Operative Report Pre & Post Diagnosis Operation Date: 08/29/24 07:30 Pre-Op Diagnosis: Adrenal Mass Post-Op Diagnosis: Adrenal Mass, Left Labial Abscess, Right Groin Abscess I identified the patient and participated in the time-out.: Yes Procedure Operation Date: 08/29/24 07:30 Actual Procedures Robotic Assisted Laparoscopic Adrenalectomy - Left(Left) - Tony Parsons DO Incision and Drainage of Groin abscess x 2 - See Other Operative Note. Surgeon Tony Parsons, II, DO Media Traffic Manager Monico Estimated Blood Loss 5 Findings Consistent with Post-Op Diagnosis Significant adhesions with nodular left adrenal gland. 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 Patient underwent workup for functional status. Patient was specifically worked up for pheochromocytoma. Risks and benefits discussed at length. Description of Procedure The patient was brought to the operative suite and placed under general endotracheal intubation anesthesia in the supine position. Two Abscesses were discovered in the groin. See the previous operative report for full report on procedure for incision and drainage. The patient was transferred to lateral position with the right flank exposed. The patient was placed into a flex'ed position and then placed into mild reverse Trendelenberg. At this point, the patient prepped and draped in the usual sterile fashion and a timeout was completed. Preoperative weight based antibiotics had been given. LIZZETH's and SCD's were placed on the patient's lower extremities. A catheter was placed by nursing using sterile technique. With the time out completed the patient was flexed and the skin was marked. The lateral port site was anesthetized. A small incision was made into the skin and subcutaneous tissues. A Varess needle was selected and placed. The needle was easily moved and it was irrigated and aspirated without any issues or concerns for placement. Insufflation commenced. Once insufflated, the lateral edge of the rectus sheath was marked and anesthetized. The skin was incised and a camera port was placed. The cavity was insufflated to 15 mmHG. The laparoscopic camera was placed and the abdominal cavity inspected. No concerning features were noted. At this point, the skin was marked for port placement and 8mm working ports were placed. The skin was anesthetized down to fascia and an approx 1cm incision was made to place the 2 x 8mm ports. A 12mm and 5 mm assistant director of public works ports were also placed in similar fashion under direct visualization. The robot was positioned and docked. The camera was placed and all trocars were positioned under direct visualization. Zina Monico was integral in port placement, camera utilization, and docking procedure. She remained in sterile attire and then proceeded to assist the remainder of the case. The colon was mobilized medially to expose the retroperitoneum and the area assessed. Adhesions were freed to allow mobilization. A small amount of adhesions were noted from the colon and were freed. These were dissected with blunt technique. Cautery was used to assist dissection and control bleeding. The retroperitoneal fat was assessed. Adhesions to the spleen were then also freed. The adenoma as well as the gonadal vein were assessed. Care was taken to dissect down near the aorta. This was then followed superiorly. Monitoring the ureter and the gonadal vein. Dissection stayed toward the midline along the aorta and the ureter and gonadal vein were avoided. The dissection was followed to the renal pelvis. The Renal Vein was identified and exposed. Dissection was taken further superior. The adrenal Vein was identified as well as the renal artery. The adrenal vein was freed and was then mobilized and care was taken to slowly dissect between the perinephric fat. The Adrenal vein was isolated. Two hemolock clips were used to clamp the vein. No changes in heart rate or blood pressure occurred with placement of the clips. A third clip was then placed near the renal vein attachment. The vein was then transected. The adrenal gland with the large adenoma was then slowly dissected. Numerous Small vessels were ligated and cut as dissection progressed. Hemolock clips were used for some of the more significant vessels. The posterior, inferior, and superior surfaces were dissected free. No major bleeding or other issues. The specimen was placed into a catch bag and set to the side. Surgicel hemostatic agent sheets were placed under the spleen and on the m usculature. Hemostatic agents Tisseel and Floseal were also placed. Hemostatic agent was also placed on the renal vein and the adrenal vein stump. No major bleeding or other issues. The entire dissection space was inspected one final time. No bleeding or injuries or areas of concern were noted. No tumor or other concerning features were noted. The kidney appeared to be without injury or area of concern. At this point, the robot was undocked and moved away from the patient. The port sites were all assessed laparoscopically. The endoscopic bag was moved into the perimedian port. It was then removed. The 12mm port site was closed with the Nabil Pina device and a 1-0 Vicryl suture. The other ports were assessed and no issues observed. The skin at each site was closed with a stapling device. The area was cleaned and bandage placed on each incision. The patient was cleaned and bandaged. Patient was moved back into the supine position The patient was cleaned, aroused from anesthesia, and transferred to the pacu in stable condition having tolerated the procedure well with no complications. I was present and participated in all aspects of the procedure. MY[address] was critical in the portions as mentioned above. Plan to monitor overnight. Followup in approx 2-3 weeks to re-evaluate and discuss pathology. Per endocrine recommendation will plan to utilize steroids postoperatively. I attest to the content of the Intraoperative Record and any orders documented therein. Any exceptions are noted below.
--- NOTE | 2024-08-29 11:02 | Communication Note ---
Date of Service: August 29, 2024 Per patient's scrap sorter, Dr. Thompson, recommended postoperative steroid regimen: After surgery, Hydrocortisone 50 mg IV every 8 hours until taking PO. When taking PO, can transition to Hydrocortisone 40mg am and 20 mg pm during admission. Plan to discharge with Hydrocortisone 20 mg am/10 mg pm until endocrinology follow-up.
[2024-08-29 11:09] LABS: Basophils # (auto) 0.08 K/uL (0.00-0.20); Basophils % (auto) 0.5 %; Eosinophils # (auto) 0.15 K/uL (0.00-0.50); Hematocrit (blood only) 41.9 % (37.0-47.0); Hemoglobin 13.4 g/dl (12.0-16.0); Immature Granulocytes # (auto) 0.06 K/uL (0.01-0.20); Immature Granulocytes % (auto) 0.4 %; Lymphocytes # (auto) 2.97 K/uL (1.20-3.40); Lymphocytes % (auto) 20.2 %; Mean Corpuscular Hemoglobin 30.3 pg (25.0-34.0); Mean Corpuscular Volume 94.8 fL (80.0-100.0); Mean Platelet Volume 9.1 fL (9.4-12.4); Monocytes # (auto) 1.39 K/uL (0.11-0.59); Monocytes % (auto) 9.5 %; Neutrophils # (auto) 10.04 K/uL (1.40-6.50); Neutrophils % (auto) 68.4 %; Platelet Count 310 K/uL (130-400); RDW Coefficient of Variation 14.9 % (11.5-14.5); RDW Standard Deviation 51.8 fL (36.4-46.3); Red Blood Count 4.42 M/uL (4.20-5.40); White Blood Count 14.69 K/ul (4.8-10.8)
[2024-08-29 11:25] LABS: BUN Creatinine Ratio 26.9 (10-20); Calcium 8.4 mg/dl (8.6-10.3); Creatinine Clr Calc Pharmacy 98.7 ml/min; Potassium 4.2 mmol/L (3.5-5.1)
--- NOTE | 2024-08-29 12:23 | Anesthesiology Progress Note ---
Date of Service August 29, 2024 Anesthesia Post Procedure Vital Signs Vital Signs: Temp Pulse Pulse Resp BP BP Pulse Ox 08/29/24 12:19 37.2 C 120 H 20 123/84 92 08/29/24 12:05 120 H 15 117/87 90 08/29/24 11:55 120 H 21 124/66 91 08/29/24 11:45 119 H 12 130/86 92 08/29/24 11:35 116 H 12 130/69 92 08/29/24 11:20 114 H 19 137/70 94 08/29/24 11:10 111 H 14 143/74 H 93 08/29/24 11:00 109 H 15 148/75 H 95 08/29/24 10:50 108 H 16 144/73 H 95 08/29/24 10:42 36.0 C L 115 H 15 145/75 H 95 08/29/24 06:31 08/29/24 06:31 36.2 C L 94 H 20 135/82 99 O2 Del Method O2 Flow Rate 08/29/24 12:19 Nasal Cannula 4 08/29/24 12:05 Nasal Cannula 4 08/29/24 11:55 Nasal Cannula 4 08/29/24 11:45 Oxymask 4 08/29/24 11:35 Oxymask 4 08/29/24 11:20 Oxymask 8 08/29/24 11:10 Oxymask 8 08/29/24 11:00 Oxymask 8 08/29/24 10:50 Oxymask 8 08/29/24 10:42 Oxymask 8 08/29/24 06:31 Room Air 08/29/24 06:31 Room Air Transfer of Care Handoff Completed per policy Notes Mental Status: alert / awake / arousable Patient Amnestic to Procedure: Yes Nausea / Vomiting: adequately controlled Pain: adequately controlled Airway Patency, RR, SpO2: stable & adequate BP & HR: stable & adequate and see Notes below Hydration State: stable & adequate Anesthetic Complications: no major complications apparent Notes: pt with sinus tach to ~120. gradual increase in post op period. denies CP or SOB. pain controlled. BP stable. labs wnl. patient mildly tachy at baseline. continue to monitor with no intervention at this time.
[2024-08-29] MEDS ORDERED: PHARMACY GLYCEMIC MGMT CONSULT PRN (13:00)
[2024-08-29] MEDS ORDERED: oxyCODONE HCL IR 5 MG TAB (IMMEDIATE RELEASE) PO PRN (13:00)
[2024-08-29] MEDS ORDERED: HYOSCYAMINE SULFATE 0.125 MG TAB PO PRN (13:00)
[2024-08-29] MEDS ORDERED: HYDROmorphone INJ 0.5 MG/0.5 ML SYR IV PRN ×2 (13:00)
[2024-08-29] MEDS ORDERED: CARBOHYDRATES FOR HYPOGLYCEMIA PO PRN (13:15)
[2024-08-29] MEDS ORDERED: GLUCAGON FOR INJ 1 MG VIAL SQ PRN (13:15)
[2024-08-29] MEDS ORDERED: DEXTROSE 50% 50 ML SYRINGE IV PRN (13:15)
[2024-08-29] MEDS ORDERED: GLUCOSE 10 TAB/TUBE PO PRN (13:15)
[2024-08-29] MEDS ORDERED: GLUCOSE 40% GEL 15 GM TUBE PO PRN (13:15)
--- NOTE | 2024-08-29 13:41 | Hospitalist Consultation ---
Date of Consultation August 29, 2024 Assessment & Plan (1) Adrenal mass: Prior diagnosis of primary hypercortisolism reason for her current surgery, s/p left adrenalectomy 08/[address] Parsons Hydrocortisone per endocrinology recommendations, 50 mg IV q.8 hourly until taking p.o. then can transition to 40 mg p.o. QAM and 20 mg in the afternoon Discharge on hydrocortisone 20 mg QAM 10 mg in the afternoon until endocrinology follow-up in approximately 2 weeks (2) Groin abscess: S/p I&D left labia and right groin in the OR 08/[address] Parsons Covered with perioperative antibiotics cefazolin Wound culture pending (3) Type 2 diabetes mellitus with microalbuminuria: Pharmacy consulted by primary team to manage diabetes (4) Severe obstructive sleep apnea: Patient unable to wear CPAP as has diffiulty sleeping with this, prescribed oxygen at night but not complaint with this (5) Hypothyroidism: TSH 1.1 in December 2023, no need to repeat Continue levothyroxine 75 mcg p.o. daily (6) Ulcerative colitis: Controlled on Entyvio (7) Hypertension: Continue olmesartan (8) Chronic GERD: Continue PPI History of Present Illness Reason for Consultation: Postop medical management Attending Physician: Tony Parsons, II, DO History of Present Illness Emani Boyer is a 64-year-old female who underwent robotic assisted laparoscopic adrenalectomy, incision and drainage of groin abscesses x 2. She reports having a headache post operatively but she gets these frequently for years. Otherwise no questions or concerns. She reports having obstructive sleep apnea but unable to wear CPAP at night. Allergies Allergy/AdvReac Type Severity Reaction Status Date / Time ropinirole Allergy Intermediate "violently Verified 08/29/24 06:25 ill" rosuvastatin AdvReac Mild "crying Verified 08/29/24 06:25 fits" Home Medications Medication Instructions Recorded Confirmed Type efjqidui-foe-qtcww acid 0.4 1 tab PO QAM 06/08/18 08/29/24 History mg-lycopene 300 mcg-lutein 250 mcg tablet (Centrum Silver) cholecalciferol (vitamin D3) 25 1,000 unit PO HS 05/08/19 08/29/24 History mcg (1,000 unit) capsule (Vitamin D3) vedolizumab 300 mg intravenous 300 mg IV .COMPLEX #1 ea 02/02/23 08/29/24 Rx solution (Entyvio) hyoscyamine sulfate 0.125 mg tablet 0.125 mg PO QID PRN ud 04/26/23 08/29/24 History blood-glucose sensor (Dexcom G7 #9 ea 05/02/23 08/22/24 Rx Sensor device) esomeprazole magnesium 40 mg 40 mg PO QAM #90 caps 09/14/23 08/29/24 Rx capsule,delayed release bupropion HCl 150 mg tablet,12 hr 150 mg PO QAM #90 ea 09/18/23 08/29/24 Rx sustained-release venlafaxine 150 mg 150 mg PO QAM #90 caps 09/18/23 08/29/24 Rx capsule,extended release 24 hr folic acid 1 mg tablet 1 mg PO QAM #90 tabs 10/25/23 08/29/24 Rx coenzyme Q10 100 mg capsule 400 mg PO BID 12/07/23 08/29/24 History magnesium 200 mg tablet 200 mg PO HS 12/07/23 08/29/24 History zccknt-erszeelq-xtykihp 2 cap PO AC #540 caps 02/26/24 08/29/24 Rx 36,000-114,000-180,000 unit capsule,delay rel (Creon) cyanocobalamin (vitamin B-12) 500 1,000 mcg PO DAILY 03/14/24 08/29/24 History mcg tablet (B-12 DOTS) pen needle, diabetic 32 gauge x #400 ea 03/14/24 08/22/24 Rx 1/4" (TechLITE Pen Needle) insulin glargine 100 unit/mL (3 60 unit (0.6 mL) subcut HS #30 mL 05/10/24 08/29/24 Rx mL) subcutaneous pen (Lantus Solostar U-100 Insulin) levothyroxine 75 mcg tablet 75 mcg PO QAM #90 tabs 05/15/24 08/29/24 Rx metformin 500 mg tablet,extended 1,000 mg (2 x 500 mg) PO BID 90 07/22/24 08/29/24 Rx release 24 hr days #360 tabs Lactobacillus rhamnosus-Bifidobac. 1 cap PO QAM 08/20/24 08/29/24 History animalis 3 billion cell capsule (Owned it) olmesartan 40 mg tablet 40 mg PO QAM 08/20/24 08/29/24 History pravastatin 10 mg tablet 10 mg PO QAM 08/20/24 08/29/24 History Humalog KwikPen Insulin 100 15 unit (0.15 mL) subcut TID #15 mL 08/28/24 08/29/24 Rx unit/mL subcutaneous (insulin lispro) Patient History Medical History (Updated 08/29/24 @ 13:48 by Michael Martinez MD) Adrenal hyperplasia More so noted to right adrenal gland per endocrine Hx of ulcerative colitis remission since 2018 Hx of migraines Pancreatic insufficiency secondary to idiopathic chronic pancreatitis uses creon daily Hypothyroidism Hypertension GERD (gastroesophageal reflux disease) Severe obstructive sleep apnea to use CPAP with 1 L of oxygen - unable to use. is not using cpap or any oxygen currently Fatty infiltration of liver [place]ly's disease - following with [facility] [place]ocr[place]ology - Endocrine recommended left adrenalectomy due to endogenous cortisol hypersecretion from 1 or both adrenal glands Dyslipidemia Anxiety and depression Type 2 diabetes mellitus IDDM Adrenal mass "more clear nodular disease" to left adrenal gland per endocrine AC (acromioclavicular) arthritis Hiatal hernia Acne rosacea Hirsutism Insomnia Restless leg syndrome Degenerative disc disease Osteoarthritis Decreased hearing Hepatitis A hx - as a child (no current issues) On home oxygen therapy 1L of oxygen at HS via CPAP Memory loss mild - alert and oriented x3. Scoliosis Diverticulosis Surgical History S/P right cataract extraction H/O vaginal surgery vulva cyst removed S/P left cataract extraction History of repair of left rotator cuff History of excision of pilonidal cyst History of anesthesia reaction hypotension History of back surgery "LASER SURGERY TO CLEAN OUT ARTHRITIS IN LUMBAR AREA" History of esophagogastroduodenoscopy (EGD) (11/2021) History of colonoscopy (10/2018) Every two years per pt. Last 8--21Dr. Case History of cholecystectomy 2007 [facility] History of tooth extraction all teeth removed History of myringotomy left ear History of endoscopic sinus surgery Family History Grandmother (Maternal) Family history of diabetes mellitus Colon cancer Mother Family hx of colon cancer Colon cancer Aunt Family hx of colon cancer Colon cancer Diabetes Grandfather (Maternal) Colon cancer Father Cancer Uncle No problems noted. Other No family history of adverse response to anesthesia Denies family history of Ovarian cancer Prostate cancer Myocardial infarction Breast cancer Social History Smoking Status: Former smoker Tobacco Type: Cigarettes Age Started Using Tobacco: 12; Age Quit Using Tobacco: 47; packs per day: 1.5; Smoking End Date: quit 2006; Second Hand Exposure: No; Do You Dip or Chew Tobacco: No; Tobacco Cessation Education Requested by Patient: No Hx Alcohol Use: No Hx Substance Use: Yes (medical THC card - does not currently use) Prescribed Medications: Marijuana Last Used Substance Other:: "years ago" Preferred Language: [place] Communication Ability: Effective Visual Impairment: No Limitations Hearing Ability: Use of Hearing Aid Engraver Block Required: No Beliefs That Will Affect Care: None marital status: Current Living Situation: Spouse current occupational status: unemployed How many Children do You have: 0 Other Information That Helps Us Care for You: No Feels Safe at Home: Yes Safety Concerns: Feels Safe At This Time caffeine: No Dental Care, Regularly: No Physical Activity Frequency: Does not Exercise Seatbelt Use: never Sunscreen Use: Yes Assistive Devices: Denture - Upper, Denture - Lower, Glasses and Hearing Aid - Bilateral Review of Systems Review of Systems: All systems reviewed & are unremarkable except as noted in HPI & below Physical Exam Constitutional: WD/WN, vitals as above ENMT: external ear and nose normal, oropharynx normal Respiratory: normal respiratory effort, lungs clear to auscultation Cardiovascular: Rate/Rhythm: regular rhythm and + tachycardic Heart Sounds: no murmur Extremities: normal capillary refill; no pedal edema Gastrointestinal (Abdomen): normal bowel sounds, soft, nontender, no hepatosplenomegaly Neurologic: moves all extremities and awake; not confused Psychiatric: A+Ox3, euthymic affect Genitourinary: no CVA tenderness Results & Data Results & Data Vital Signs (Past 12 Hours) Vital Signs Temp Pulse Pulse Pulse Resp BP BP 08/29/24 13:15 115 H 20 119/87 08/29/24 12:30 37.1 C 118 H 18 128/88 08/29/24 12:19 37.2 C 120 H 20 08/29/24 12:05 120 H 15 08/29/24 11:55 120 H 21 08/29/24 11:45 119 H 12 08/29/24 11:35 116 H 12 08/29/24 11:20 114 H 19 08/29/24 11:10 111 H 14 08/29/24 11:00 109 H 15 08/29/24 10:50 108 H 16 08/29/24 10:42 36.0 C L 115 H 15 08/29/24 06:31 08/29/24 06:31 36.2 C L 94 H 20 135/82 BP Pulse Ox O2 Del Method O2 Flow Rate 08/29/24 13:15 93 Nasal Cannula 4 08/29/24 12:30 93 Nasal Cannula 4 08/29/24 12:19 123/84 92 Nasal Cannula 4 08/29/24 12:05 117/87 90 Nasal Cannula 4 08/29/24 11:55 124/66 91 Nasal Cannula 4 08/29/24 11:45 130/86 92 Oxymask 4 08/29/24 11:35 130/69 92 Oxymask 4 08/29/24 11:20 137/70 94 Oxymask 8 08/29/24 11:10 143/74 H 93 Oxymask 8 08/29/24 11:00 148/75 H 95 Oxymask 8 08/29/24 10:50 144/73 H 95 Oxymask 8 08/29/24 10:42 145/75 H 95 Oxymask 8 08/29/24 06:31 Room Air 08/29/24 06:31 99 Room Air Laboratory Results Abnormal lab results 08/29/24 08/29/24 08/29/24 Range/Units 06:25 10:47 10:59 WBC 14.69 H (4.8-10.8) K/ul RDW Std Deviation 51.8 H (36.4-46.3) fL RDW Coeff of David 14.9 H (11.5-14.5) % MPV 9.1 L (9.4-12.4) fL Neut # (Auto) 10.04 H (1.40-6.50) K/uL [place] # (Auto) 1.39 H (0.11-0.59) K/uL BUN/Creatinine Ratio 26.9 H (10-20) Glucose 212 H (70-99(Fasting)) mg/dl POC Glucose 183 H 174 H (70-99) mg/dl Calcium 8.4 L (8.6-10.3) mg/dl 08/29/24 Range/Units 12:30 WBC (4.8-10.8) K/ul RDW Std Deviation (36.4-46.3) fL RDW Coeff of David (11.5-14.5) % MPV (9.4-12.4) fL Neut # (Auto) (1.40-6.50) K/uL [place] # (Auto) (0.11-0.59) K/uL BUN/Creatinine Ratio (10-20) Glucose (70-99(Fasting)) mg/dl POC Glucose 215 H (70-99) mg/dl Calcium (8.6-10.3) mg/dl PG Care Time/CCT Total # of Minutes Spent Total Time Spent with Patient: Total time spent is greater than 50% in coordination of care (as documented) at patient's floor/unit and/or counseling patient: Coding Level of Care Code 47420 IN/OBS CONSULT LVL 4,60M Diagnoses Adrenal mass E27.8 Groin abscess L02.214 Type 2 diabetes mellitus with microalbuminuria E11.29; R80.9 Severe obstructive sleep apnea G47.33 Hypothyroidism E03.9 Ulcerative colitis K51.90 Digestive disease complication type: other complication Essential hypertension I10 Hypertension type: essential hypertension Chronic GERD K21.9 (6) Ulcerative colitis Digestive disease complication type: other complication (7) Hypertension Hypertension type: essential hypertension Qualified Code(s): I10 - Essential (primary) hypertension
[2024-08-29] MEDS: SODIUM CHLORIDE 0.9% 1,000 ML IV SCH (13:48)
[2024-08-29] MEDS: INSULIN ASPART PER UNIT CHARGE SC SCH (13:57)
[2024-08-29] MEDS: PANCREAZE (LIPASE 10,500U) CAP PO SCH (13:58)
[2024-08-29] MEDS: ACETAMINOPHEN 325 MG TAB PO SCH (13:58)
[2024-08-29] MEDS: LANTUS PER UNIT CHARGE SC ONE (14:03)
[2024-08-29] MEDS: HYDROCORTISONE SOD 50 MG in SYRINGE 0 ML IV SCH (14:05)
--- NOTE | 2024-08-29 14:16 | Pharmacy Report ---
Pharmacy Glycemic Short Note 2 - Date of Service August 29, 2024 - Glycemic Short BSG Results (Last 24 hours): 08/29/24 08/29/24 08/29/24 06:25 10:47 10:59 Glucose 212 H POC Glucose 183 H 174 H 08/29/24 12:30 Glucose POC Glucose 215 H OUTPATIENT ANTIDIABETIC REGIMEN: * Lantus 60 units SQ at HS * Humalog 15 units SQ TID * Metformin 1000mg po BID HbA1c is ordered for 08/30 with AM labs ASSESSMENT: * 64 year old female admitted today for adrenalectomy and excision of left labial and right groin abscesses (POD #0). Pharmacy was consulted for glycemic management postop as patient is a type 2 diabetic who was started on routine steroids * Patient reportedly took her last dose of Lantus 60 units at bedtime last night. BSG preop today was 183mg/dL. She received 4mg iv dexamethasone preop. BSG postop was 215mg/dL. An additional 10 units of Lantus x 1 was ordered for now and a Lantus scale of 50 or 60 units depending on BSG was ordered for bedtime. * A weight based (using adjusted body weight) bolus insulin regimen with a stress of 3 was started at lunch time today as patient has been ordered hydrocortisone 50mg iv q 8hours post op. PLAN FOR INPATIENT GLYCEMIC CONTROL: * Hold outpatientdiabetes medications * Basal insulin * Lantus 10 units SQ x 1 postop, then Lantus scale at bedtime tonight (50 units if BSG < 160 and 60 units if BSG 160 or greater) * Bolus insulin * NovoLog per scale ACHS or Q6hrs while NPO * Goal Range: Low 110 mg/dL - High 140 mg/dL * Correction Factor: 20 mg/dL/unit * Nutritional / Prandial insulin per carb ratio of 1 unit per 7 grams CHO consumed
--- NOTE | 2024-08-29 16:07 | Electrocardiogram Report ---
Test Reason : Blood Pressure : */* mmHG Vent. Rate : 100 BPM Atrial Rate : 100 BPM P-R Int : 152 ms QRS Dur : 84 ms QT Int : 344 ms P-R-T Axes : 40 48 63 degrees QTcB Int : 443 ms Normal sinus rhythm Normal ECG When compared with ECG of 23-Aug-2018 17:27, No significant change was found Confirmed by Elpidio Moore ([id number]) on 08/29/2024 4:07:14 PM Referred By: Tony Parsons Confirmed By: Elpidio Moore
[2024-08-29] MEDS: oxyCODONE HCL IR 5 MG TAB (IMMEDIATE RELEASE) PO PRN (16:16)
[2024-08-29] MEDS: NYSTATIN POWDER 15GM BTL EXT SCH (16:16)
--- NOTE | 2024-08-29 16:16 | Electrocardiogram Report ---
Test Reason : Blood Pressure : */* mmHG Vent. Rate : 112 BPM Atrial Rate : 112 BPM P-R Int : 166 ms QRS Dur : 90 ms QT Int : 342 ms P-R-T Axes : 55 59 55 degrees QTcB Int : 466 ms Sinus tachycardia Otherwise normal ECG When compared with ECG of 29-Aug-2024 06:30, (unconfirmed) No significant change was found Confirmed by Elpidio Moore ([id number]) on 08/29/2024 4:16:33 PM Referred By: Tony Parsons Confirmed By: Elpidio Moore
[2024-08-29] MEDS: ONDANSETRON INJ 2 MG/ML 2 ML VIAL IV PRN (17:40)
[2024-08-29] MEDS ORDERED: NON-FORMULARY MEDICATION (Coenzyme Q10 100 mg capsule) PO SCH (21:00)
[2024-08-29] MEDS: DOCUSATE SODIUM 100 MG CAP PO SCH (21:51)
[2024-08-29] MEDS: MAGNESIUM OXIDE 400 MG TAB PO SCH (21:52)
[2024-08-29] MEDS: CHOLECALCIFEROL 25 MCG (1000 UNITS) TAB PO SCH (21:52)
[2024-08-29] MEDS: HEPARIN SOD 5,000 UNIT/0.5 ML VIAL SQ SCH (21:56)
[2024-08-29] MEDS: LANTUS PER UNIT CHARGE SC SCH (21:57)
[2024-08-30] MEDS: INSULIN ASPART PER UNIT CHARGE SC SCH (01:36)
[2024-08-30] MEDS: LEVOTHYROXINE SODIUM 75 MCG TABLET PO SCH (06:03)
--- NOTE | 2024-08-30 07:21 | Hospitalist Progress Note ---
Date of Service August 30, 2024 Assessment & Plan Plan 1. 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 Parsons Hydrocortisone per endocrinology recommendations, 50 mg IV q.8 hourly until taking p.o. then can transition to 40 mg p.o. QAM and 20 mg in the afternoon Discharge on hydrocortisone 20 mg QAM 10 mg in the afternoon until endocrinology follow-up in approximately 2 weeks 2. Groin abscess S/p I&D left labia and right groin in the OR 08/[address] Parsons Covered with perioperative antibiotics cefazolin Wound culture pending 3. Type 2 diabetes mellitus with microalbuminuria Pharmacy consulted by primary team to manage diabetes 4. Severe obstructive sleep apnea Patient unable to wear CPAP as has difficulty sleeping with this, prescribed oxygen at night but not complaint with this 5. Hypothyroidism TSH 1.1 in December 2023, no need to repeat Continue levothyroxine 75 mcg p.o. daily 6. Ulcerative colitis Controlled on Entyvio 7. Hypertension Continue olmesartan 8. Chronic GERD Continue PPI Admission and Anticipated Discharge Date Admission Date: August 29, 2024 Results & Data Results & Data Vital Signs (Past 12 Hours) Vital Signs Temp Pulse Resp BP Pulse Ox O2 Del Method O2 Flow Rate 08/30/24 03:19 36.8 C 90 17 120/77 93 Nasal Cannula 2 08/30/24 00:00 36.9 C 102 H 17 102/58 L 92 Nasal Cannula 2 08/29/24 21:10 Room Air
[2024-08-30 07:31] VITALS: BP 129/72; RESP 16; TEMP 98.6; O2SAT 94
[2024-08-30] MEDS: buPROPion SR 150 MG TABCR PO SCH (07:58)
[2024-08-30] MEDS: ADVANCED PROBIOTIC 625 MG CAPSULE PO SCH (07:58)
[2024-08-30] MEDS: LOSARTAN POTASSIUM 50 MG TAB PO SCH (07:58)
[2024-08-30] MEDS: FOLIC ACID 1 MG TAB PO SCH (07:59)
[2024-08-30] MEDS: PANTOprazole 40 MG TAB PO SCH (07:59)
[2024-08-30] MEDS: VENLAFAXINE HCL XR 150 MG CAPXR PO SCH (07:59)
[2024-08-30] MEDS: PRAVASTATIN SOD 10 MG TAB PO SCH (07:59)
[2024-08-30] MEDS: CYANOCOBALAMIN (B-12) 500 MCG TABLET PO SCH (07:59)
--- NOTE | 2024-08-30 09:06 | Urology Progress Note ---
Date of Service August 30, 2024 Assessment & Plan (1) Adrenal mass: (2) Groin abscess: Plan: Patient postop day #1 status post left adrenalectomy, incision and drainage of groin and labial abscesses Afebrile, hemodynamically stable, tachycardia postprocedure, improving Awaiting AM labs Hospital medicine consultedappreciate assistance Continue with postoperative steroid dosing regimen per endocrinology Continue postoperative antibiotics, continue with PO antibiotics for abscesses Wound care nursing consulted today Patient reports she is established with wound care in [place] and her is experienced with wound packing and exchanges Tolerating liquid diet, will advance as tolerated today Cespedes out this morning Encouraged ambulation Incisions appropriate Anticipate discharge to home later today presuming she continues to progress and labs stable Admission and Anticipated Discharge Date Admission Date: August 29, 2024 Subjective Patient seen and examined at bedside this morning. She is awake and sitting up in bed having breakfast. No acute issues overnight. Reports mild discomfort near incisions. Has not been out of bed yet. Cespedes intact. Denies fever, chills, nausea or vomiting. She reports she is established with wound care in [place] and her typically does wound care/packing at home. She reports they have wound care supplies at home. Review of Systems Constitutional: as per Subjective / HPI Genitourinary: as per Subjective / HPI Physical Exam Constitutional: + obese; no acute distress Respiratory: normal respiratory effort; no respiratory distress and no labored breathing Gastrointestinal (Abdomen): Inspection/Auscultation: abdomen not distended Percussion/Palpation: abdomen soft; abdomen nontender Musculoskeletal: Head/Neck/Chest: normocephalic Skin: Incisions C/D/I with quinn; Dressings intact over labial and groin wound Neurologic: moves all extremities and awake Psychiatric: Orientation: alert and oriented x 3 Genitourinary: Cespedes intact with clear yellow Results & Data Vital Signs (Past 12 Hours) Vital Signs Temp Pulse Resp BP Pulse Ox O2 Del Method O2 Flow Rate 08/30/24 07:29 37.0 C 98 H 16 129/72 94 Room Air 08/30/24 03:19 36.8 C 90 17 120/77 93 Nasal Cannula 2 08/30/24 00:00 36.9 C 102 H 17 102/58 L 92 Nasal Cannula 2 08/29/24 21:10 Room Air PG Care Time/CCT Total # of Minutes Spent Total Time Spent with Patient: Total time spent is greater than 50% in coordination of care (as documented) at patient's floor/unit and/or counseling patient: Coding Level of Care Code None Diagnoses Adrenal mass E27.8 Groin abscess L02.214
[2024-08-30 10:20] LABS: Basophils # (auto) 0.02 K/uL (0.00-0.20); Basophils % (auto) 0.2 %; Eosinophils # (auto) 0.02 K/uL (0.00-0.50); Eosinophils % (auto) 0.2 %; Hematocrit (blood only) 38.5 % (37.0-47.0); Hemoglobin 12.2 g/dl (12.0-16.0); Immature Granulocytes # (auto) 0.04 K/uL (0.01-0.20); Immature Granulocytes % (auto) 0.4 %; Lymphocytes # (auto) 1.63 K/uL (1.20-3.40); Lymphocytes % (auto) 18.1 %; Mean Corpuscular Hemoglobin 30.3 pg (25.0-34.0); Mean Corpuscular Hgb Conc 31.7 g/dL (32.0-36.0); Mean Corpuscular Volume 95.8 fL (80.0-100.0); Mean Platelet Volume 9.6 fL (9.4-12.4); Monocytes # (auto) 0.84 K/uL (0.11-0.59); Monocytes % (auto) 9.3 %; Neutrophils # (auto) 6.48 K/uL (1.40-6.50); Neutrophils % (auto) 71.8 %; Platelet Count 275 K/uL (130-400); RDW Coefficient of Variation 15.1 % (11.5-14.5); RDW Standard Deviation 53.1 fL (36.4-46.3); Red Blood Count 4.02 M/uL (4.20-5.40); White Blood Count 9.03 K/ul (4.8-10.8)
[2024-08-30] MEDS: HYDROCORTISONE 10 MG TAB PO SCH (10:20)
[2024-08-30 10:33] LABS: BUN Creatinine Ratio 19.1 (10-20); Calcium 8.1 mg/dl (8.6-10.3); Creatinine Clr Calc Pharmacy 97.3 ml/min; Magnesium 1.5 mg/dl (1.7-2.4); Potassium 4.1 mmol/L (3.5-5.1)
[2024-08-30 11:48] LABS: Estimated Average Glucose 203 mg/dl; Hemoglobin A1C 8.7 % (4.5-5.6)
--- NOTE | 2024-08-30 12:22 | Pharmacy Report ---
Pharmacy Glycemic Short Note 2 - Date of Service August 30, 2024 - Glycemic Short BSG Results (Last 24 hours): 08/29/24 08/29/24 08/29/24 12:30 16:26 20:43 Glucose POC Glucose 215 H 202 H 172 H 08/30/24 08/30/24 08/30/24 00:43 03:17 07:46 Glucose POC Glucose 142 H 144 H 134 H 08/30/24 08/30/24 09:23 11:27 Glucose 234 H POC Glucose 164 H OUTPATIENT ANTIDIABETIC REGIMEN: * Lantus 60 units SQ at HS * Humalog 15 units SQ TID * Metformin 1000mg po BID HbA1c: 8.7 on 08/30/24 ASSESSMENT: 08/30 * Patient received a total of 81 units of insulin yesterday (70units were basal and 11units were bolus) * Fasting BSG was 134mg/dL this morning. Will continue Lantus 60 units QHS as she takes at home. * Bolus insulin will be continued as ordered yesterday since patient is on po hydrocortisone 40mg in the morning and 20mg in the evening. 08/29 * 64 year old female admitted today for adrenalectomy and excision of left labial and right groin abscesses (POD #0). Pharmacy was consulted for glycemic management postop as patient is a type 2 diabetic who was started on routine steroids * Patient reportedly took her last dose of Lantus 60 units at bedtime last night. BSG preop today was 183mg/dL. She received 4mg iv dexamethasone preop. BSG postop was 215mg/dL. An additional 10 units of Lantus x 1 was ordered for now and a Lantus scale of 50 or 60 units depending on BSG was ordered for bedtime. * A weight based (using adjusted body weight) bolus insulin regimen with a stress of 3 was started at lunch time today as patient has been ordered hydrocortisone 50mg iv q 8hours post op. PLAN FOR INPATIENT GLYCEMIC CONTROL: * Hold outpatient diabetes medications * Basal insulin * Lantus 60 units SQ at bedtime * Bolus insulin * NovoLog per scale ACHS or Q6hrs while NPO * Goal Range: Low 110 mg/dL - High 140 mg/dL * Correction Factor: 20 mg/dL/unit * Nutritional / Prandial insulin per carb ratio of 1 unit per 7 grams CHO consumed
--- NOTE | 2024-08-30 13:44 | Discharge Summary ---
Date of Service August 30, 2024 Admission HPI Per Admitting Provider Patient with left adrenal mass and hypercortisolism here for left adrenalectomy. Principal Diagnosis Adrenal mass Discharge Exam Constitutional + obese; no acute distress Respiratory normal respiratory effort; no respiratory distress and no labored breathing Gastrointestinal (Abdomen) Inspection/Auscultation: abdomen normal to inspection; abdomen not distended Percussion/Palpation: abdomen soft; abdomen nontender Musculoskeletal Head/Neck/Chest: normocephalic Skin Incisions C/D/I with quinn Neurologic moves all extremities and awake Psychiatric Orientation: alert and oriented x 3 Discharge Data Allergies Allergy/AdvReac Type Severity Reaction Status Date / Time ropinirole Allergy Intermediate "violently Verified 08/29/24 06:25 ill" rosuvastatin AdvReac Mild "crying Verified 08/29/24 06:25 fits" Consultations 08/29/24 13:00 Consult Hospitalist Routine Procedures Performed Operation Date: 08/29/24 07:30 Actual Procedures p Robotic Assisted Laparoscopic Adrenalectomy - Left(Left) - Tony Parsons DO s Minor Excision Left Labial Abscess and Right Groin Abscess(Not Applicable) - Tony Parsons DO Hospital Course (1) Adrenal mass: (2) Groin abscess: Patient postop day #1 status post left adrenalectomy, incision and drainage of groin and labial abscesses Afebrile, hemodynamically stable, tachycardia postprocedure, improving Awaiting AM labs Hospital medicine consultedappreciate assistance Continue with postoperative steroid dosing regimen per endocrinology Continue postoperative antibiotics, continue with PO antibiotics for abscesses Wound care nursing consulted Patient reports she is established with wound care and her is experienced with wound packing and exchanges Tolerating liquid diet, will advance as tolerated today Cespedes out this morning, monitor for void Encouraged ambulation Incisions appropriate Anticipate discharge to home later today presuming she continues to progress and labs stable Total Time Total Time Spent Total Time Spent (In Minutes): 29 Discharge Plan Discharge Items Patient Disposition: Home - Self-Care Reason For Visit: Adrenal Mass Discharge Diagnosis: Adrenal Mass Activity: Per Instructions section Lifting: No more than 10 pounds Bathing Comment: Okay to shower after discharge Sexual Activity: Wait until after follow-up appointment Exercise/Sports: Wait until after follow-up appointment Driving/Machine Use: No driving while taking prescription pain medication Non-emergency contact: Surgeon and Urologist Call non-emergency contact if: your pain is not controlled, your pain is worsening, you have a fever, your temperature is above 101, your wound has increased redness, your wound has increased drainage and your wound pain has increased Follow-up/Referrals: Wanda Chatterjee MD [Primary Care Provider] - Diet: Carb Consistent or DM2 Addtl Attending Provider Instructions: Please take all medications as prescribed and keep all follow-ups as scheduled. Please call our office at [phone] with any questions, concerns or need to reschedule appointments for any reason. We are happy to assist you. Take hydrocortisone as directed. Take 20 mg in the a.m., 10 mg in the afternoon between 4 and 6 PM. Start with 10 mg in the afternoon on day of discharge. If you are going to run out of medication prior to your follow-up with endocrinology, then please call their office for additional refill. Endocrinology should be reaching out to you with a follow-up appointment. Please call next week if you have been called. Your wound culture is showing no growth to date. An antibiotic was sent to your pharmacy as a precaution. Continue with daily wound care. Recovering at home: We recommend having someone with you for the first few days after surgery to help care for you. It is okay to shower tomorrow. Please avoid swimming, bathing or using hot tub until incisions are well healed. Avoid driving until you are not requiring pain medication any further. Walk at least a few times a day. Increase your distance, as you feel able. Stairs in your home are okay. Please avoid strenuous or sexual activity until your follow-up. We recommend using stool softener (i.e. Colace) to prevent constipation and straining, especially the first two weeks post operatively. Call [facility] at [phone] if you experience: Chest pain or trouble breathing (call 511 or go to the hospital). Fever of 101F or higher Symptoms of infection at incision site, including redness or swelling, warmth, or bad-smelling drainage If you have catheter, and you notice: o Bloody urine or drainage that is dark red or has large clots (Please remember a small amount of blood is normal) o No drainage from the catheter for more than 6 hours o The catheter comes out of your bladder Pain that is not controlled with medicines Pending Studies at Discharge: Yes Stand-Alone Forms: My [facility], Smoking Cessation Medications and DC Order Prescriptions: New oxycodone-acetaminophen [Percocet] 5-325 mg tablet 1 tab PO TID PRN (Reason: pain) Qty: 12 0RF sulfamethoxazole-trimethoprim [Bactrim DS] 800-160 mg tablet 1 tab PO BID 7 Days Qty: 14 0RF hydrocortisone 10 mg tablet See Rx Instructions .ROUTE .COMPLEX Qty: 43 0RF Rx Instructions: Take 20 mg (2 tabs) in the morning, 10 mg in the afternoon between 4-6 pm Continued Entyvio 300 mg recon soln 300 mg IV .COMPLEX Qty: 1 8RF Rx Instructions: 300 mg intravenously given every 8 weeks (DME) Dexcom G7 Sensor Device See Rx Instructions .Route Qty: 9 3RF Rx Instructions: change sesor every 10 days esomeprazole magnesium 40 mg capsule,delayed release(DR/EC) 40 mg PO QAM Qty: 90 3RF bupropion HCl 150 mg tablet sustained-release 12 hr 150 mg PO QAM Qty: 90 3RF venlafaxine 150 mg capsule,extended release 24hr 150 mg PO QAM Qty: 90 3RF folic acid 1 mg tablet 1 mg PO QAM Qty: 90 3RF Rx Instructions: TAKE 1 TABLET EVERY MORNING Creon 36,000-114,000- 180,000 unit capsule,delayed release(DR/EC) 2 cap PO AC Qty: 540 3RF Rx Instructions: Take 2 capsules before meals insulin glargine [Lantus Solostar U-100 Insulin] 100 unit/mL (3 mL) insulin pen 60 unit subcut HS Qty: 30 5RF metformin 500 mg tablet extended release 24 hr 1,000 mg PO BID 90 Days Qty: 360 3RF insulin lispro [Humalog KwikPen Insulin] 100 unit/mL insulin pen 15 unit subcut TID Qty: 15 1RF hyoscyamine sulfate 0.125 mg tablet 0.125 mg PO QID PRN (Reason: ud) coenzyme Q10 100 mg capsule 400 mg PO BID magnesium 200 mg tablet 200 mg PO HS levothyroxine 75 mcg tablet 75 mcg PO QAM Qty: 90 3RF cyanocobalamin (vitamin B-12) [B-12 DOTS] 500 mcg tablet 1,000 mcg PO DAILY (DME) pen needle, diabetic [TechLITE Pen Needle] 32 gauge x 1/4" needle See Rx Instructions .Route Qty: 400 3RF Rx Instructions: Use with insulin pens, four times per day Centrum Silver 0.4-300-250 mg-mcg-mcg Tablet 1 tab PO QAM cholecalciferol (vitamin D3) [Vitamin D3] 1,000 unit Capsule 1,000 unit PO HS Parents R People 3 billion cell Capsule 1 cap PO QAM pravastatin 10 mg tablet 10 mg PO QAM olmesartan 40 mg tablet 40 mg PO QAM Discharge Orders: Discharge Order (Routine); Ordered 08/30/24 Ordered By: Zina Marc Admission Data Admit Date/Time: 08/29/24 10:33 Attending Provider: Tony Parsons Admit Provider: Tony Parsons Primary Care Provider: Wanda Chatterjee Other Providers: Christoph Duong; Michael Drummond; Andrés Stahl; Lucas Schmidt; Inder Fisher; Yasmine Mcdowell; Michelle Honeycutt; Breann Munoz; Lzu Gasca; Talat Rose; Michell Howe; Elpidio Rincon; Michael Martinez; Yinka Parks; Balta Romeo; Kristie Pickens; Kia Stokes E; Kia Arredondo E; Blanquita Burdick E; Cony Rolon N; Tara Forte; Octavia Post.; Gopal Garcia; Roberto Parekh; Richard Verma; Suzy Bermeo; Lynne Ruth; Juarez Flannery; Antoine Lloyd; Lucas Dinh; Iris Nguyen; Arlin Peterson; Dolores Grimes; Brett Huerta; Jerry Mann; Magdaleno Barron; Pan Puentes; Kailey Johnson; Lev Fu; Ruth Christiansen; Pablo Jones; Katia Ball; Bella Ambrocio Coding Level of Care Code 43564 IN/OBS DISCH 30 MIN/LESS Diagnoses Adrenal mass E27.8 Groin abscess L02.214
[2024-08-30 14:05] VITALS: PULSE 120
--- NOTE | 2024-08-30 14:27 | Hospitalist Progress Note ---
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 Parsons Hydrocortisone per endocrinology recommendations, 50 mg IV q.8 hourly until taking p.o. then can transition to 40 mg p.o. QAM and 20 mg in the afternoon- orders placed this AM for oral hydrocortisone (08/30) Discharge on hydrocortisone 20 mg QAM 10 mg in the afternoon until endocrinology follow-up in approximately 2 weeks (2) Groin abscess: Plan: S/p I&D left labia and right groin in the OR 08/[address] Parsons Covered with perioperative antibiotics cefazolin Wound culture pending (3) Type 2 diabetes mellitus with microalbuminuria: Plan: Pharmacy consulted by primary team to manage diabetes (4) Severe obstructive sleep apnea: Plan: Patient unable to wear CPAP as has diffiulty sleeping with this, prescribed oxygen at night but not complaint with this (5) Hypothyroidism: Plan: TSH 1.1 in December 2023, no need to repeat Continue levothyroxine 75 mcg p.o. daily (6) Ulcerative colitis: Plan: Controlled on Entyvio (7) Hypertension: Plan: Continue olmesartan (8) Chronic GERD: Plan: Continue PPI Plan No further recommendations as this time. Recommend utilization of incentive spirometer to reduce risk of atelectasis/pna postoperatively. Early ambulation. Removal of guerrero to ensure she is able to void prior to discharge. Will require close f/u with urology and endocrine. Plan to be d/w Dr. Stokes. Admission and Anticipated Discharge Date Admission Date: August 29, 2024 Subjective Rowan is seen on daily rounds this morning. She is resting comfortably in bed, offers no complaints. Denies uncontrolled pain, she had pain this AM that was relieved by the oxycodone. She denies n/v, chest pain or dyspnea. She is tolerating oral intake. Currently still has guerrero in place. She is not interested in rehab following her surgery. She feels she will do better at home. Review of Systems 2 Review of Systems: All systems reviewed and are unremarkable except as noted in HPI and below. Denies fever, chills, fatigue, headache, nasal congestion, sore throat, cough, chest pain, shortness of breath, palpitations, orthopnea, PND, n/v/d, constipation, dysuria, hematuria, frequency, back pain, joint pain or swelling, easy bruising or bleeding, skin lesions or rashes. Physical Exam 2 Physical Exam: GENERAL: 64 yo obese WF. Awake, alert and oriented x4. No distress. LUNGS: Clear to auscultation bilaterally. No accessory muscle use. No W/R/R. CARDIOVASCULAR: Regular rate and rhythm. ABDOMEN: Soft, minimal TTP on left side of abd. Surgical incisions are well approximated. No bleeding or drainage. Non-distended. Bowel sounds normoactive x 4 quad. : guerrero in place, draining clear yellow urine EXTREMITIES: No edema. Non-tender. Peripheral pulses +2/4. PSYCHIATRIC: Cooperative. Appropriate mood and affect. SKIN: Warm, dry, intact. No rashes or lesions. Results & Data Results & Data Vital Signs (Past 12 Hours) Vital Signs Temp Pulse Pulse Resp BP Pulse Ox O2 Del Method 08/30/24 14:04 37.0 C 120 H 98 H 16 129/72 94 08/30/24 12:00 Nasal Cannula 08/30/24 07:29 37.0 C 98 H 16 129/72 94 Room Air 08/30/24 03:19 36.8 C 90 17 120/77 93 Nasal Cannula O2 Flow Rate 08/30/24 14:04 08/30/24 12:00 2 08/30/24 07:29 08/30/24 03:19 2 Laboratory Results 08/30/24 09:23 08/30/24 09:23 PG Care Time/CCT Total # of Minutes Spent Total Time Spent with Patient: Total time spent is greater than 50% in coordination of care (as documented) at patient's floor/unit and/or counseling patient: 36 minutes Coding Level of Care Code 23203 SUB INP/OBS CARE 2/35MIN Diagnoses Adrenal mass E27.8 Groin abscess L02.214 Type 2 diabetes mellitus with microalbuminuria E11.29; R80.9 Severe obstructive sleep apnea G47.33 Hypothyroidism E03.9 Ulcerative colitis K51.90 Digestive disease complication type: other complication Essential hypertension I10 Hypertension type: essential hypertension Chronic GERD K21.9 (6) Ulcerative colitis Digestive disease complication type: other complication (7) Hypertension Hypertension type: essential hypertension Qualified Code(s): I10 - Essential (primary) hypertension
[2024-08-30] MEDS ORDERED: HYDROCORTISONE 10 MG TAB PO SCH (17:00)
[2024-08-30] MEDS ORDERED: LANTUS PER UNIT CHARGE SC SCH (21:00)
== END 2024-08-30 14:45 | disposition home or self-care (01) | DRG 614 ==
LOC: ASU 06:02 → 3W 10:33